=== PATIENT | male | born 1950 | race Caucasian/White ===

== ENCOUNTER 2018-07-06 15:41 | Inpatient (IN) ==
[2018-07-06] MEDS ORDERED: Ketorolac Inj 30 MG/ML (IVP) Vial IV.PUSH ONE (20:47)
[2018-07-06] MEDS ORDERED: Vancomycin Inj 1,000 MG in Sodium Chlor 0.9% Inj 250 ML IV.SIG ONE (20:47)
[2018-07-06] MEDS ORDERED: Piperacil/Tazo 3.375 GM Premix 3.375 GM/50 ML PIGGYBACK IV.SIG ONE (20:47)
[2018-07-06] MEDS ORDERED: Sod Chloride 0.9% Inj 1,000 ML IV.SIG ONE (20:47)
--- NOTE | 2018-07-06 20:57 | ED ---
HPI General Chief complaint: Medical Clearance Stated complaint: facial swelling-chin area Time Seen by Provider: 07/06/18 20:45 Source: patient Limitations: no limitations History of Present Illness HPI narrative: The patient is a 68 year old male who presents to the [facility] emergency department with a history of reportedly breaking a left mandibular molar on June 29, 2018, and then developing swelling to the left side of his jaw area. He reports that he was seen in an urgent care center on July 03 regarding the symptoms. He was started on amoxicillin 875 mg twice a day and Naprosyn 500 mg twice a day as needed for pain. He reports that there was no improvement in the swelling and yesterday the swelling became much worse. He reports that the pain also became much worse. He reports having nausea without vomiting. He denies having any known fevers or chills. The patient does report having history of diabetes. He reports that he last checked his blood sugar yesterday and it was 110. The patient reports that he does not have a local primary care physician as he recently moved to the area in February 2017. He reports that he has not seen a dentist for 3 years. The patient reports that he followed up at the urgent care center earlier today regarding the increased pain and swelling and was referred to the emergency department for evaluation and treatment. The patient reports having pain with swallowing. He denies having any difficulty breathing. On review of systems otherwise, the patient denies having any cough, congestion, neck stiffness, chest pain, shortness of breath, abdominal pain, diarrhea, urinary symptoms, or neurologic symptoms. Related Data Home Medications Medication Instructions Recorded Confirmed amoxicillin 875 mg PO BID 07/06/18 07/06/18 glimepiride 2 mg PO QAM 07/06/18 07/06/18 metformin 500 mg PO BID 07/06/18 07/06/18 naproxen 250 mg PO BID 07/06/18 07/06/18 pravastatin 40 mg PO DAILY 07/06/18 07/06/18 telmisartan 40 mg PO DAILY 07/06/18 07/06/18 tiotropium bromide [Spiriva 2 puff INHALATION DAILY 07/06/18 07/06/18 Respimat] Allergies Allergy/AdvReac Type Severity Reaction Status Date / Time No Known Allergies Allergy Verified 07/06/18 20:45 Review of Systems ROS: all other systems reviewed are negative PMFSH History History Provided By: Patient Family History Family History Other Diabetes mellitus Social History Social History Substance History: No History of Abuse Second Hand Smoke Exposure: No Smoking Status: Never smoker Smoking End Date: Quit 10 years ago. How Often Do You Have a Drink Containing Alcohol: 2 to 3 times a week Recent Travel in [facility] within the Last 8 Weeks: No Recent Out of Country Travel within the Last 8 Weeks: No Exam Const General: cooperative, no acute distress and well developed Nutritional Appearance: well nourished Orientation: alert, awake and oriented x3 HENMT Head: normocephalic and atraumatic Nose: no nasal discharge and no epistaxis Mouth: moist mucous membranes Teeth and gingiva: caries, gingiva abnormal diffusely erythematous and other ( No eloy abscess formation.) and poor dentition Throat: posterior oropharynx normal, uvula midline and other (No swelling noted to the underlying the patient's tongue in his mouth.) Eyes Sclera: normal sclerae Pupils: PERRL Neck Neck: not normal to visual inspection, no meningeal signs, trachea midline, no JVD and other (The patient is noted to have swelling underneath the left side of his jaw, under the chin spreading down into the anterior neck and partially involving the right side underneath the right mandible. This is indurated, firm , exquisitely tender to palpation. No fluctuance is palpated. No pointing. No open wounds.) Resp Effort & Inspection: no use of accessory muscles Auscultation: clear to auscultation bilaterally Cardio Rate: tachycardic (Sinus tachycardia in the low 100s. No pulse deficits to the extremities on simultaneous auscultation and palpation of his radial artery) Rhythm: regular rhythm Heart Sounds: no gallops, no murmurs and no rubs GI Inspection: non-distended Palpation: soft, no hepatosplenomegaly, no guarding, not rigid and nontender Auscultation: normal bowel sounds Back/Spine/Pelvis Back: no CVA tenderness Skin General: dry skin (warm) Neuro General: alert, awake, oriented x3 and other (Grossly nonfocal) Speech: speech normal Motor: no movement abnormalities noted Extrem General: normal to inspection (2+ pulses in all 4 extremities.), no calf tenderness, no clubbing, no cyanosis and no edema Psych Mood: congruent mood Affect: normal affect Judgment: judgment good Course Initial Documented Vital Signs Temperature 97.3 F L 07/06/18 15:53 Pulse Rate 111 H 07/06/18 15:53 Respiratory Rate 18 07/06/18 15:53 Blood Pressure 153/76 H 07/06/18 15:53 Pulse Oximetry 97 07/06/18 15:53 Last Documented Vital Signs Temperature 98.1 F 07/07/18 04:00 Pulse Rate 115 H 07/07/18 04:00 Respiratory Rate 20 07/07/18 04:00 Blood Pressure 142/75 H 07/07/18 04:00 Pulse Oximetry 95 07/07/18 04:00 Medical Decision Making MDM Narrative Medical decision making narrative: During the course of the patient's emergency department visit, the patient's history, examination, and differential diagnosis were reviewed with the patient. The patient was placed on a pvc monitor with oximetry and frequent blood pressure monitoring. The patient had IV access obtained and blood work sent for analysis. A diagnostic evaluation was started regarding the patient's swelling involving the area underneath the chin and mandible worse on the left compared to the right. The patient was initially provided normal saline 1 L IV fluid bolus, Zosyn and vancomycin. Blood cultures x2 were collected prior to antibiotic being started. A lactic acid was sent for analysis. The patient's diagnostic studies are remarkable for a white count of 21.8, hemoglobin 13.4, platelets 473 with 83.9 neutrophils, PT 10.3, PTT 34.4, chemistries remarkable for BUN of 33, creatinine 1.36, cardiac enzymes within normal limits, lipase within normal limits, lactic acid 1.3. Chest x-ray revealed convex medial right apical right paratracheal density worrisome for upper chest or mediastinal mass, recommended CT scan to further evaluate by the reading radiologist. CT scan of the soft tissues of the neck reveals air and mild induration change in the left floor of the mouth and submandibular region which is presumably related to gas producing dental infection of some type. CT scan of the chest reveals medial right apical lung mass that is felt likely to be benign potentially a bronchogenic cyst or GI duplication cyst. There are additional nodules elsewhere in both lungs which warrant follow-up ideally the radiologist recommended follow-up with outpatient PET/CT as none of these lesions appear appropriate for biopsy at present. Probable benign findings in the upper abdomen, mild ascending thoracic aortic aneurysm. The patient's case including history, pertinent physical examination findings, and laboratory studies were discussed with Dr. Hinojosa. It was agreed that the patient would be admitted to the hospitalist service. The patient's results were discussed with the patient, including the plan of care. I explained that further testing and/ or monitoring is indicated based on the patient's history, examination, and/ or laboratory findings. Therefore, I recommended admission for additional evaluation. The patient expressed understanding and was agreeable with this plan. The patient was admitted to the hospital in guarded condition and sent to a bed under the care of the [facility] service. Medical Screen Exam Complete: Yes Emergency Medical Condition: Yes Differential Diagnosis Differential Diagnosis: Ludewig's angina, versus sialadenitis, versus lymphadenitis, versus cellulitis, versus deep abscess Medical Records Medical records reviewed: Yes I reviewed the patient's medical records. Lab Data Lab results reviewed: Yes I reviewed the patient's lab results. Result diagrams: 07/07/18 05:05 07/07/18 05:05 Lab Results 07/06/18 07/06/18 07/06/18 Range/Units 20:50 20:50 20:50 WBC 21.8 H (4.0-11.0) th/mm3 RBC 3.92 L (4.50-5.90) mil/mm3 Hgb 13.4 (13.0-17.0) gm/dL Hct 40.2 (39.0-51.0) % MCV 102.3 H (80.0-100.0) fL MCH 34.1 H (27.0-34.0) pg MCHC 33.3 (32.0-36.0) % RDW 14.0 (11.6-17.2) % Plt Count 473 H (150-450) th/mm3 MPV 7.8 (7.0-11.0) fL Neut % (Auto) 83.9 H (16.0-70.0) % Lymph % (Auto) 7.9 L (9.0-44.0) % Cascade % (Auto) 7.3 (0.0-8.0) % Eos % (Auto) 0.4 (0.0-4.0) % Baso % (Auto) 0.5 (0.0-2.0) % Neut # (Auto) 18.3 H (1.8-7.7) th/mm3 Lymph # (Auto) 1.7 (1.0-4.8) th/mm3 Cascade # (Auto) 1.6 H (0.0-0.9) th/mm3 Eos # (Auto) 0.1 (0.0-0.4) th/mm3 Baso # (Auto) 0.1 (0.0-0.2) th/mm3 WBC Differential . Differential Comment Auto diff final PT 10.3 (9.8-11.6) sec INR 1.0 Ratio APTT 34.4 H (23.4-31.7) sec Sodium (136-145) meq/L Potassium (3.5-5.1) meq/L Chloride (98-107) meq/L Carbon Dioxide (21.0-32.0) meq/L Anion Gap (5-15) meq/L BUN (7-18) mg/dL Creatinine (0.60-1.30) mg/dL Estimated GFR (>89) mL/min POC Glucose (68-110) mg/dl Random Glucose (74-106) mg/dL Lactic Acid (0.4-2.0) mmol/L Calcium (8.5-10.1) mg/dL Magnesium (1.5-2.5) mg/dL Total Bilirubin (0.2-1.0) mg/dL AST (15-37) U/L ALT (12-78) U/L Alkaline Phosphatase (45-117) U/L Total Creatine Kinase 234 (39-308) U/L CK-MB (CK-2) 1.8 (0.5-3.6) ng/mL Troponin I Less than 0.02 L (0.02-0.05) ng/mL Total Protein (6.4-8.2) g/dL Albumin (3.4-5.0) g/dL Lipase 254 (73-393) U/L 07/06/18 07/06/18 07/07/18 Range/Units 20:50 20:50 01:47 WBC (4.0-11.0) th/mm3 RBC (4.50-5.90) mil/mm3 Hgb (13.0-17.0) gm/dL Hct (39.0-51.0) % MCV (80.0-100.0) fL MCH (27.0-34.0) pg MCHC (32.0-36.0) % RDW (11.6-17.2) % Plt Count (150-450) th/mm3 MPV (7.0-11.0) fL Neut % (Auto) (16.0-70.0) % Lymph % (Auto) (9.0-44.0) % Cascade % (Auto) (0.0-8.0) % Eos % (Auto) (0.0-4.0) % Baso % (Auto) (0.0-2.0) % Neut # (Auto) (1.8-7.7) th/mm3 Lymph # (Auto) (1.0-4.8) th/mm3 Cascade # (Auto) (0.0-0.9) th/mm3 Eos # (Auto) (0.0-0.4) th/mm3 Baso # (Auto) (0.0-0.2) th/mm3 WBC Differential Differential Comment PT (9.8-11.6) sec INR Ratio APTT (23.4-31.7) sec Sodium 136 (136-145) meq/L Potassium 3.9 (3.5-5.1) meq/L Chloride 104 (98-107) meq/L Carbon Dioxide 23.1 (21.0-32.0) meq/L Anion Gap 9 (5-15) meq/L BUN 33 H (7-18) mg/dL Creatinine 1.36 H (0.60-1.30) mg/dL Estimated GFR 52 L (>89) mL/min POC Glucose 94 (68-110) mg/dl Random Glucose 97 (74-106) mg/dL Lactic Acid 1.3 (0.4-2.0) mmol/L Calcium 9.4 (8.5-10.1) mg/dL Magnesium 2.4 (1.5-2.5) mg/dL Total Bilirubin 0.7 (0.2-1.0) mg/dL AST 21 (15-37) U/L ALT 21 (12-78) U/L Alkaline Phosphatase 86 (45-117) U/L Total Creatine Kinase (39-308) U/L CK-MB (CK-2) (0.5-3.6) ng/mL Troponin I (0.02-0.05) ng/mL Total Protein 8.1 (6.4-8.2) g/dL Albumin 3.6 (3.4-5.0) g/dL Lipase (73-393) U/L 07/07/18 07/07/18 Range/Units 05:05 05:05 WBC 16.9 H (4.0-11.0) th/mm3 RBC 3.36 L (4.50-5.90) mil/mm3 Hgb 11.3 L D (13.0-17.0) gm/dL Hct 34.5 L (39.0-51.0) % MCV 102.7 H (80.0-100.0) fL MCH 33.7 (27.0-34.0) pg MCHC 32.8 (32.0-36.0) % RDW 13.8 (11.6-17.2) % Plt Count 402 (150-450) th/mm3 MPV 7.9 (7.0-11.0) fL Neut % (Auto) 88.9 H (16.0-70.0) % Lymph % (Auto) 4.4 L (9.0-44.0) % Cascade % (Auto) 5.4 (0.0-8.0) % Eos % (Auto) 0.9 (0.0-4.0) % Baso % (Auto) 0.4 (0.0-2.0) % Neut # (Auto) 15.0 H (1.8-7.7) th/mm3 Lymph # (Auto) 0.7 L (1.0-4.8) th/mm3 Cascade # (Auto) 0.9 (0.0-0.9) th/mm3 Eos # (Auto) 0.1 (0.0-0.4) th/mm3 Baso # (Auto) 0.1 (0.0-0.2) th/mm3 WBC Differential . Differential Comment Auto diff final PT (9.8-11.6) sec INR Ratio APTT (23.4-31.7) sec Sodium 138 (136-145) meq/L Potassium 3.7 (3.5-5.1) meq/L Chloride 108 H (98-107) meq/L Carbon Dioxide 21.5 (21.0-32.0) meq/L Anion Gap 9 (5-15) meq/L BUN 32 H (7-18) mg/dL Creatinine 1.20 (0.60-1.30) mg/dL Estimated GFR 60 L (>89) mL/min POC Glucose (68-110) mg/dl Random Glucose 80 (74-106) mg/dL Lactic Acid (0.4-2.0) mmol/L Calcium 8.3 L D (8.5-10.1) mg/dL Magnesium (1.5-2.5) mg/dL Total Bilirubin (0.2-1.0) mg/dL AST (15-37) U/L ALT (12-78) U/L Alkaline Phosphatase (45-117) U/L Total Creatine Kinase (39-308) U/L CK-MB (CK-2) (0.5-3.6) ng/mL Troponin I (0.02-0.05) ng/mL Total Protein (6.4-8.2) g/dL Albumin (3.4-5.0) g/dL Lipase (73-393) U/L Imaging Data Radiologist's impression: Chest CT 07/06/18 00:00 CONCLUSION: 1. Medial right apical lung mass is felt likely benign, potentially a bronchogenic cyst or GI duplication cyst. 2. There are additional nodules elsewhere in both lungs which warrant follow- up. Ideally I would recommend follow-up with outpatient PET/CT as none of these lesions appear appropriate for biopsy at present. 3. Probably benign findings in the upper abdomen. 4. Mild ascending thoracic aortic aneurysm. Soft Tissue Neck CT 07/06/18 20:45 CONCLUSION: Air and mild indurative change in the left floor of mouth and submandibular region which is presumably related to gas producing dental infection of some type. Chest X-Ray 07/06/18 20:46 CONCLUSION: Abnormal chest. Recommend including CT chest with the patient's planned additional imaging workup Discharge Plan Discharge Disposition Patient Disposition: ED Admit(ED Internal Use Only) Discharge Order Discharge Orders: ED Use Only Admit Order (Routine); Ordered 07/06/18 Ordered By: Kayleen Webber Discharge Details Diagnosis: Failure of outpatient treatment, Cellulitis, Dental infection Physicians Team ED Provider: Kayleen Webber Primary Care Provider: Primary Care Physici,No Attending Provider: Yonny Coughlin Other Providers: Ruel Melton Discharge Interventions Interventions: ED Discharge Assessment Last Done: 07/07/18 01:45 Status ED Status: Left Department Discharge Information Discharge Date/Time: 07/07/18 01:46
--- NOTE | 2018-07-06 21:06 | XR ---
EXAM DATE: 07/06/2018 9:01 PM EST AGE/SEX: 68 years / Male INDICATIONS: Short of breath. CLINICAL DATA: This is the patient's initial encounter. Patient reports that signs and symptoms have been present for 1 day and indicates a pain score of 0/10. MEDICAL/SURGICAL HISTORY: None. None. COMPARISON: [facility] [place], CT SOFT TISSUE NECK W CONTRAST, 07/06/2018. . FINDINGS: There is a convex medial right apical/right paratracheal density worrisome for upper chest or mediast inal mass. There is slight subjective prominence of the right hilum. Lungs are grossly clear otherwis e with no significant effusion suspected. Heart size and pulmonary vascularity are normal. CONCLUSION: Abnormal chest. Recommend including CT chest with the patient's planned additional imaging workup Electronically signed by: Tristan Weinstein MD Board Certified Radiologist 07/06/2018 9:05 PM EST
[2018-07-06 21:14] LABS: Baso # (Auto) 0.1 th/mm3 (0.0-0.2); Baso % (Auto) 0.5 % (0.0-2.0); Eos # (Auto) 0.1 th/mm3 (0.0-0.4); Eos % (Auto) 0.4 % (0.0-4.0); Hematocrit 40.2 % (39.0-51.0); Hemoglobin 13.4 gm/dL (13.0-17.0); Lymph # (Auto) 1.7 th/mm3 (1.0-4.8); Lymph % (Auto) 7.9 % (9.0-44.0); Mean Corpuscular HGB Conc 33.3 % (32.0-36.0); Mean Corpuscular Hemoglobin 34.1 pg (27.0-34.0); Mean Corpuscular Volume 102.3 fL (80.0-100.0); Mean Platelet Volume 7.8 fL (7.0-11.0); Mono # (Auto) 1.6 th/mm3 (0.0-0.9); Mono % (Auto) 7.3 % (0.0-8.0); Neut # (Auto) 18.3 th/mm3 (1.8-7.7); Neut % (Auto) 83.9 % (16.0-70.0); Platelet Count 473 th/mm3 (150-450); Red Blood Count 3.92 mil/mm3 (4.50-5.90); White Blood Count 21.8 th/mm3 (4.0-11.0)
[2018-07-06 21:26] LABS: Activated Partial Thrombo Time 34.4 sec (23.4-31.7); Prothrombin Time 10.3 sec (9.8-11.6)
[2018-07-06 21:32] LABS: Albumin 3.6 g/dL (3.4-5.0); Anion Gap 9 meq/L (5-15); Aspartate Aminotransferase 21 U/L (15-37); Blood Urea Nitrogen 33 mg/dL (7-18); Calcium 9.4 mg/dL (8.5-10.1); Carbon Dioxide 23.1 meq/L (21.0-32.0); Chloride 104 meq/L (98-107); Glomerular Filtration Rate 52 mL/min (>89); Glucose,Random 97 mg/dL (74-106); Magnesium 2.4 mg/dL (1.5-2.5); Potassium 3.9 meq/L (3.5-5.1); Sodium 136 meq/L (136-145)
[2018-07-06 21:33] LABS: Alanine Aminotransferase 21 U/L (12-78)
[2018-07-06 21:34] LABS: Lipase 254 U/L (73-393)
[2018-07-06 21:35] LABS: Alkaline Phosphatase 86 U/L (45-117); Total Protein 8.1 g/dL (6.4-8.2)
[2018-07-06 21:37] LABS: Creatine Kinase 234 U/L (39-308)
[2018-07-06 21:49] LABS: Creatine Kinase MB 1.8 ng/mL (0.5-3.6)
--- NOTE | 2018-07-06 22:29 | CT ---
EXAM DATE: 07/06/2018 10:10 PM EST AGE/SEX: 68 years / Male INDICATIONS: Shortness of breath, abnormal chest x-ray. CLINICAL DATA: This is the patient's initial encounter. Patient reports that signs and symptoms have been present for 1 day and indicates a pain score of 0/10. MEDICAL/SURGICAL HISTORY: Chronic obstructive pulmonary disease. Diabetes. Hypertension. None. RADIATION DOSE: 6.59 CTDI (mGy) COMPARISON: No prior exams available for comparison. TECHNIQUE: Multiple contiguous axial images were obtained through the chest during bolus infusion of 50 ml Omnipaque 350 (iohexol) nonionic water-soluble contrast as a single exam dose. Images were obtained in suspended respiration using multiple row detector helical technique. Using automated exp osure control and adjustment of the mA and/or kV according to patient size, radiation dose was kept a s low as reasonably achievable to obtain optimal diagnostic quality images. DICOM format image data is available electronically for review and comparison. FINDINGS: There is a very well-circumscribed minimally less than 4 cm mass in the medial right lung apex which shows Hounsfield density of just greater than water. There is a 14 mm nodular focus in the lingula wi th slight adjacent reticular infiltrative density. A 9 mm nodular density is present in the posterior medial right lower lobe. Multiple additional tiny parenchymal nodules are present elsewhere in the l ower lung zones bilaterally. There is mild baseline emphysema. No evidence of lobar pneumonia. There is a small fat-containing posterior diaphragmatic hernia on the right. There is mild aneurysmal dilatation of the ascending thoracic aorta to a diameter of 4.4 cm. Atherosc lerotic calcifications are present, including within the coronaries. Small hiatal hernia is noted. No evidence of hilar or mediastinal adenopathy. There is no evidence of effusion. No axillary adenopathy or chest wall destruction is noted. There is a circumscribed low density 2.7 cm right adrenal gland mass which is felt likely benign. Tin y cysts in the visualized liver. Mild hepatic steatosis. Granulomatous calcifications in the spleen. CONCLUSION: 1. Medial right apical lung mass is felt likely benign, potentially a bronchogenic cyst or GI duplic ation cyst. 2. There are additional nodules elsewhere in both lungs which warrant follow-up. Ideally I would rec ommend follow-up with outpatient PET/CT as none of these lesions appear appropriate for biopsy at pre sent. 3. Probably benign findings in the upper abdomen. 4. Mild ascending thoracic aortic aneurysm. Electronically signed by: Tristan Weinstein MD Board Certified Radiologist 07/06/2018 10:27 PM EST
--- NOTE | 2018-07-06 22:44 | CT ---
EXAM DATE: 07/06/2018 10:09 PM EST AGE/SEX: 68 years / Male INDICATIONS: Left side neck swelling. CLINICAL DATA: This is the patient's initial encounter. Patient reports that signs and symptoms have been present for 4 - 6 days and indicates a pain score of 10/10. MEDICAL/SURGICAL HISTORY: Chronic obstructive pulmonary disease. Diabetes. Hypertension. None. RADIATION DOSE: 18.52 CTDI (mGy) COMPARISON: No prior exams available for comparison. TECHNIQUE: Helical acquisition was performed using a multirow detector CT scanner during the adminis tration of 50 ml Omnipaque 350 (iohexol) nonionic water-soluble contrast as a single exam dose. Usi ng automated exposure control and adjustment of the mA and/or kV according to patient size, radiation dose was kept as low as reasonably achievable to obtain optimal diagnostic quality images. DICOM fo rmat image data is available electronically for review and comparison. FINDINGS: There is air and indurative changes extending from the left floor of mouth adjacent to the medial man dible and premolar tooth region inferiorly into the submandibular space. This is presumably related t o dental infection of some type. There is no significant fluid present, mainly air. There is mild mucosal sinus disease in the base of the right maxillary sinus. The visualized orbits and brain are unremarkable. There is no evidence of cervical adenopathy. The visualized parotid and submandibular salivary glands are unremarkable. The supraclavicular regions are unremarkable. The thyroid is normal for CT appearance. CONCLUSION: Air and mild indurative change in the left floor of mouth and submandibular region which is presumabl y related to gas producing dental infection of some type. Electronically signed by: Tristan Weinstein MD Board Certified Radiologist 07/06/2018 10:42 PM EST
[2018-07-06] MEDS ORDERED: Vancomycin Consult Pharmacy OTHER PRN (23:26)
[2018-07-06] MEDS ORDERED: Dextrose 50% in Water 50 ML Vial IV.PUSH PRN (23:28)
[2018-07-06] MEDS ORDERED: Bisacodyl 10 MG Supp RECTAL PRN (23:28)
[2018-07-06] MEDS ORDERED: Morphine Sulfate Inj 2 MG/ML Vial IV.PUSH PRN (23:28)
--- NOTE | 2018-07-06 23:40 | P.HP ---
History of Present Illness Service: [facility] Primary Care Physician: No Primary Care Physician History of Present Illness: 68-year-old male with a past medical history significant for diabetes mellitus, hypertension, hyperlipidemia and COPD presents to the emergency department for the evaluation of pain and swelling in his left jaw and left neck. The patient reports that on 06/28 he cracked his bottom left molar. He did not seek treatment as the broken tooth was not bothering him at that time. He reports that by 06/30 his tooth had started hurting. He then noticed left-sided jaw swelling with accompanying pain. One week ago, the patient went to urgent care and was prescribed amoxicillin and naproxen. He took his medications as prescribed however his symptoms continued to worsen. He returned to urgent care today who sent him to the [facility] for further evaluation of failed outpatient therapy. The patient denies any fever/chills. He denies any chest pain or shortness of breath. No abdominal pain. No nausea/vomiting/diarrhea. No focal neurologic deficits. Inpatient Certification: I certify that the inpatient services were ordered in accordance with Medicare regulations governing the order. This includes certification that hospital inpatient services are reasonable and necessary and in the case of services not specified as inpatient-only under 42 CFR 419.22(n), that they are appropriately provided as inpatient services in accordance to with the 2-midnight benchmark under 43 CFR 412.3(e) Estimated Total Length of Stay (Days): 3 Plans for Post Hospital Care: Not yet determined Review of Systems All other systems reviewed negative except as stated [facility] - History History Provided By: Patient - Medical History Medical History: Medical History (Last Reviewed 07/06/18 @ 23:34 by Carmelina Hinojosa MD) COPD (chronic obstructive pulmonary disease) Diabetes mellitus Diabetic neuropathy Hyperlipidemia Hypertension - Surgical History Surgical History: Surgical History (Last Reviewed 07/06/18 @ 23:34 by Carmelina Hinojosa MD) History of tonsillectomy - Family History Family History: Family History (Last Updated 07/06/18 @ 23:34 by Carmelina Hinojosa MD) Other Diabetes mellitus - Social History I have reviewed the patient's Social History: Yes - Tobacco History Smoking Status: Former smoker Smoking End Date: Quit 10 years ago. - Alcohol History How Often Do You Have a Drink Containing Alcohol: 4 or more times a week - Substance Use History Substance History: No History of Abuse - Travel History Recent Travel in the [place] Within the Last 8 Weeks: No Recent Travel Out of the Country Within the Last 8 Weeks: No Medications and Allergies Allergies Allergy/AdvReac Type Severity Reaction Status Date / Time No Known Allergies Allergy Verified 07/06/18 20:45 Home Medications Medication Instructions Recorded Confirmed Type amoxicillin 875 mg PO BID 07/06/18 07/06/18 History glimepiride 2 mg PO QAM 07/06/18 07/06/18 History metformin 500 mg PO BID 07/06/18 07/06/18 History naproxen 250 mg PO BID 07/06/18 07/06/18 History pravastatin 40 mg PO DAILY 07/06/18 07/06/18 History telmisartan 40 mg PO DAILY 07/06/18 07/06/18 History tiotropium bromide [Spiriva 2 puff INHALATION DAILY 07/06/18 07/06/18 History Respimat] Exam Vital signs: Vital Signs 07/06/18 15:53 Temperature 97.3 F L Pulse Rate 111 H Respiratory Rate 18 Blood Pressure 153/76 H Pulse Oximetry 97 Intake & Output 07/06/18 07/06/18 07/07/18 06:59 18:59 06:59 Intake Total 50 / 50 Balance 50 / 50 Weight 72.575 kg Intake: IV 50 / 50 Zosyn 3.375 GM Premix 3.375 gm 50 / 50 In 50 ml @ 100 mls/hr IV.SIG ONCE ONE Rx#:[id number] Narrative: Gen.: No acute distress Head: Normocephalic. Atraumatic. EENT: Pupils equal round and reactive to light. Nose without drainage. Airway intact. Throat without injection. Multiple caries with diffusely erythematous tissue. Left side of the jaw and left neck swollen and erythematous with induration but no fluctuance. Cardiovascular: Regular rate and rhythm. No murmurs, rubs or gallops. Respiratory: Lungs clear to auscultation bilaterally. No wheezes or rhonchi. Abdomen: Soft, nontender, nondistended. No peritoneal signs. Musculoskeletal: No gross deformities. No edema. Neuro: Sensory and motor grossly intact. Cranial nerves II through XII grossly intact. Results - Labs CBC & Chem 7: 07/06/18 20:50 07/06/18 20:50 Labs: Laboratory Results - last 24 hr 07/06/18 07/06/18 07/06/18 20:50 20:50 20:50 WBC 21.8 H RBC 3.92 L Hgb 13.4 Hct 40.2 MCV 102.3 H MCH 34.1 H MCHC 33.3 RDW 14.0 Plt Count 473 H MPV 7.8 Neut % (Auto) 83.9 H Lymph % (Auto) 7.9 L Liberty % (Auto) 7.3 Eos % (Auto) 0.4 Baso % (Auto) 0.5 Neut # (Auto) 18.3 H Lymph # (Auto) 1.7 Liberty # (Auto) 1.6 H Eos # (Auto) 0.1 Baso # (Auto) 0.1 WBC Differential . Differential Comment Auto diff final PT 10.3 INR 1.0 APTT 34.4 H Sodium Potassium Chloride Carbon Dioxide Anion Gap BUN Creatinine Estimated GFR Random Glucose Lactic Acid Calcium Magnesium Total Bilirubin AST ALT Alkaline Phosphatase Total Creatine Kinase 234 CK-MB (CK-2) 1.8 Troponin I Less than 0.02 L Total Protein Albumin Lipase 254 07/06/18 07/06/18 20:50 20:50 WBC RBC Hgb Hct MCV MCH MCHC RDW Plt Count MPV Neut % (Auto) Lymph % (Auto) Liberty % (Auto) Eos % (Auto) Baso % (Auto) Neut # (Auto) Lymph # (Auto) Liberty # (Auto) Eos # (Auto) Baso # (Auto) WBC Differential Differential Comment PT INR APTT Sodium 136 Potassium 3.9 Chloride 104 Carbon Dioxide 23.1 Anion Gap 9 BUN 33 H Creatinine 1.36 H Estimated GFR 52 L Random Glucose 97 Lactic Acid 1.3 Calcium 9.4 Magnesium 2.4 Total Bilirubin 0.7 AST 21 ALT 21 Alkaline Phosphatase 86 Total Creatine Kinase CK-MB (CK-2) Troponin I Total Protein 8.1 Albumin 3.6 Lipase - Imaging Impressions Chest CT 07/06/18 00:00 CONCLUSION: 1. Medial right apical lung mass is felt likely benign, potentially a bronchogenic cyst or GI duplication cyst. 2. There are additional nodules elsewhere in both lungs which warrant follow- up. Ideally I would recommend follow-up with outpatient PET/CT as none of these lesions appear appropriate for biopsy at present. 3. Probably benign findings in the upper abdomen. 4. Mild ascending thoracic aortic aneurysm. Soft Tissue Neck CT 07/06/18 20:45 CONCLUSION: Air and mild indurative change in the left floor of mouth and submandibular region which is presumably related to gas producing dental infection of some type. Chest X-Ray 07/06/18 20:46 CONCLUSION: Abnormal chest. Recommend including CT chest with the patient's planned additional imaging workup Caprini VTE Risk Assessment Caprini VTE Risk Assessment: Moderate/High Risk (score >= 2) Caprini Risk Assessment Model: Point Value = 1 Point Value = 2 Point Value = 3 Point Value = 5 Age 41-60 Minor surgery BMI > 25 kg/m2 Swollen legs Varicose veins or History of unexplained or recurrent spontaneous Oral contraceptives or hormone replacement Sepsis (< 1 month) Serious lung disease, including pneumonia (< 1 month) Abnormal pulmonary function Acute myocardial infarction Congestive heart failure (< 1 month) History of inflammatory bowel disease Medical patient at bed rest Age 61-74 Arthroscopic surgery Major open surgery (> 45 min) Laparoscopic surgery (> 45 min) Malignancy Confined to bed (> 72 hours) Immobilizing plaster cast Central venous access Age >= 75 History of VTE Family history of VTE Factor V Leiden Prothrombin [id number] Lupus anticoagulant Anticardiolipin antibodies Elevated serum homocysteine Heparin-induced thrombocytopenia Other congenital or acquired thrombophilia Stroke (< 1 month) Elective arthroplasty Hip, pelvis, or leg fracture Acute spinal cord injury (< 1 month) Prophylaxis Regimen: Total Risk Factor Score Risk Level Prophylaxis Regimen 0-1 Low Early ambulation 2 Moderate Order ONE of the following: *Sequential Compression Device (SCD) *Heparin 5000 units SQ BID 3-4 Higher Order ONE of the following medications: *Heparin 5000 units SQ TID *Enoxaparin/Lovenox 40 mg SQ daily (WT < 150 kg, CrCl > 30 mL/min) *Enoxaparin/Lovenox 30 mg SQ daily (WT < 150 kg, CrCl > 10-29 mL/min) *Enoxaparin/Lovenox 30 mg SQ BID (WT < 150 kg, CrCl > 30 mL/min) AND/OR *Sequential Compression Device (SCD) 5 or more Highest Order ONE of the following medications: *Heparin 5000 units SQ TID (Preferred with Epidurals) *Enoxaparin/Lovenox 40 mg SQ daily (WT < 150 kg, CrCl > 30 mL/min) *Enoxaparin/Lovenox 30 mg SQ daily (WT < 150 kg, CrCl > 10-29 mL/min) *Enoxaparin/Lovenox 30 mg SQ BID (WT < 150 kg, CrCl > 30 mL/min) AND *Sequential Compression Device (SCD) Assessment and Plan - Plan Assessment/plan: 1. Dental abscess/cellulitis Failed outpatient amoxicillin CT of the neck shows air and mild indurative change in the left floor of the mouth and submandibular region ENT consulted, appreciate assistance Vancomycin/Zosyn 2. Diabetes mellitus Holding home oral antihyperglycemics Sliding-scale insulin Monitor blood glucose 3. Hypertension/hyperlipidemia/COPD Continue home medications 4. Acute kidney injury Creatinine 1.36, baseline unknown Likely chronic component IV fluid hydration Monitor renal function FEN N.p.o. Electrolytes: Monitor and replete as needed NS at 100 cc/hour Holding pharmacologic anticoagulation until cleared by ENT
[2018-07-07] MEDS: Sod Chloride 0.9% Inj 1,000 ML IV.CONT SCH ×3 (01:11→21:17)
[2018-07-07] MEDS: Insulin NovoLOG Aspart Correctional Sugar Inj SQ SCH ×5 (02:05→21:24)
[2018-07-07] MEDS: Acetaminophen 325 MG Tablet PO PRN ×2 (03:45→20:22)
[2018-07-07] MEDS: Piperacil/Tazo 3.375 GM Premix 3.375 GM/50 ML PIGGYBACK IV.SIG SCH ×4 (03:45→21:17)
[2018-07-07 06:15] LABS: Baso # (Auto) 0.1 th/mm3 (0.0-0.2); Baso % (Auto) 0.4 % (0.0-2.0); Eos # (Auto) 0.1 th/mm3 (0.0-0.4); Eos % (Auto) 0.9 % (0.0-4.0); Hematocrit 34.5 % (39.0-51.0); Hemoglobin 11.3 gm/dL (13.0-17.0); Lymph # (Auto) 0.7 th/mm3 (1.0-4.8); Lymph % (Auto) 4.4 % (9.0-44.0); Mean Corpuscular HGB Conc 32.8 % (32.0-36.0); Mean Corpuscular Hemoglobin 33.7 pg (27.0-34.0); Mean Corpuscular Volume 102.7 fL (80.0-100.0); Mean Platelet Volume 7.9 fL (7.0-11.0); Mono # (Auto) 0.9 th/mm3 (0.0-0.9); Mono % (Auto) 5.4 % (0.0-8.0); Neut % (Auto) 88.9 % (16.0-70.0); Platelet Count 402 th/mm3 (150-450); Red Blood Count 3.36 mil/mm3 (4.50-5.90); Red Cell Distribution Width 13.8 % (11.6-17.2); White Blood Count 16.9 th/mm3 (4.0-11.0)
[2018-07-07 06:27] LABS: Calcium 8.3 mg/dL (8.5-10.1); Carbon Dioxide 21.5 meq/L (21.0-32.0); Potassium 3.7 meq/L (3.5-5.1)
[2018-07-07] MEDS: Senna/Docusate Sodium 8.6/50 MG Tablet PO SCH ×2 (08:17→20:22)
[2018-07-07] MEDS ORDERED: TIOTROPIUM BROMIDE INH SCH (09:00)
[2018-07-07] MEDS ORDERED: Vancomycin Inj 1,500 MG in Sodium Chlor 0.9% Inj 500 ML IV.SIG SCH (11:00)
--- NOTE | 2018-07-07 12:58 | P.PNIM ---
Subjective Interval history: Patient seen and evaluated this morning at bedside with present. Patient reports that his breathing is stable without any shortness of breath. Patient reports that he is able to swallow much better than he did 24 hours previously. Patient denied noticing any pus coming from his mouth or any sores. Patient without any subjective fever chills. Patient otherwise offers no new complaints and we are currently awaiting ENT evaluation Physical Exam Vital signs: Last Vital Signs Temp 98.3 F 07/07/18 12:00 Pulse 95 H 07/07/18 12:00 Resp 14 07/07/18 12:00 BP 120/58 L 07/07/18 12:00 Pulse Ox 96 07/07/18 12:00 Intake & Output 07/05/18 07/06/18 07/07/18 07/08/18 06:59 06:59 06:59 06:59 Intake Total 1350 / 1350 1565 / 1565 Balance 1350 / 1350 1565 / 1565 Weight 78.2 kg Narrative: Gen.: No acute distress Head: Normocephalic. Atraumatic. EENT: Pupils equal round and reactive to light. Nose without drainage. Airway intact. Throat without injection. Multiple caries with diffusely erythematous tissue. Left side of the jaw and left neck swollen and erythematous with induration but minimal fluctuance. Cardiovascular: Regular rate and rhythm. No murmurs, rubs or gallops. Respiratory: Lungs clear to auscultation bilaterally. No wheezes or rhonchi. Abdomen: Soft, nontender, nondistended. No peritoneal signs. Musculoskeletal: No gross deformities. No edema. Neuro: Sensory and motor grossly intact. Cranial nerves II through XII grossly intact. Results Labs CBC & Chem 7: 07/07/18 05:05 07/07/18 05:05 Labs: Microbiology 07/06/18 20:55 Blood - Peripheral Aerobic Blood Culture - Preliminary No growth in 1 day 07/06/18 20:55 Blood - Peripheral Anaerobic Blood Culture - Preliminary No growth in 1 day 07/06/18 20:50 Blood - Peripheral Aerobic Blood Culture - Preliminary No growth in 1 day 07/06/18 20:50 Blood - Peripheral Anaerobic Blood Culture - Preliminary No growth in 1 day Imaging Imaging: Impressions Chest CT 07/06/18 00:00 CONCLUSION: 1. Medial right apical lung mass is felt likely benign, potentially a bronchogenic cyst or GI duplication cyst. 2. There are additional nodules elsewhere in both lungs which warrant follow- up. Ideally I would recommend follow-up with outpatient PET/CT as none of these lesions appear appropriate for biopsy at present. 3. Probably benign findings in the upper abdomen. 4. Mild ascending thoracic aortic aneurysm. Soft Tissue Neck CT 07/06/18 20:45 CONCLUSION: Air and mild indurative change in the left floor of mouth and submandibular region which is presumably related to gas producing dental infection of some type. Chest X-Ray 07/06/18 20:46 CONCLUSION: Abnormal chest. Recommend including CT chest with the patient's planned additional imaging workup Assessment and Plan (1) Lung nodule: Code(s): R91.1 - Solitary pulmonary nodule Status: Acute (2) Lung nodule < 6cm on CT: Code(s): R91.1 - Solitary pulmonary nodule Status: Acute Plan Patient is a 68-year-old male with past medical history of hyperlipidemia, hypertension, diabetes mellitus presenting with jaw erythema swelling admitted and found on CAT scan to have significant soft tissue swelling. Infectious disease: Soft tissue infection ENT consulted and recommendations pending Blood culture: No growth to date Continue empiric antibiotic Zosyn 3.375 every 6 hours, vancomycin 1.5 g every 24 hours Monitor vancomycin trough Pain control: Naproxen [address] imaging reviewed. No evidence of Abscess formation in the chest - considerations: In general, antimicrobial therapy should be continued for two to three weeks until clear evidence of clinical improvement is present, and fever and leucocytosis have subsided. Sequential C-reactive protein measurement is a useful tool for monitoring the progress of such patients - ESR/CRP for am Pulmonary: Lung nodule Outpatient follow-up with PET/CT scan. Cardiology: Hyperlipidemia, hypertension Continue losartan 50 mg Pravastatin 40 mg p.o. Endocrinology: Diabetes mellitus Insulin correctional scale Progress Note: Quality VTE Deep Vein Thrombosis/Pulmonary Embolism Present on Admission: No
[2018-07-07] MEDS ORDERED: Vancomycin Consult Pharmacy OTHER PRN (13:00)
[2018-07-08] MEDS: Insulin NovoLOG Aspart Correctional Sugar Inj SQ SCH ×5 (02:57→20:56)
[2018-07-08] MEDS: Piperacil/Tazo 3.375 GM Premix 3.375 GM/50 ML PIGGYBACK IV.SIG SCH ×2 (03:00→09:10)
[2018-07-08] MEDS: Sod Chloride 0.9% Inj 1,000 ML IV.CONT SCH ×2 (06:14→17:22)
[2018-07-08 07:08] LABS: Hematocrit 31.8 % (39.0-51.0); Hemoglobin 10.6 gm/dL (13.0-17.0); Mean Corpuscular HGB Conc 33.3 % (32.0-36.0); Mean Corpuscular Hemoglobin 34.3 pg (27.0-34.0); Mean Corpuscular Volume 103.1 fL (80.0-100.0); Mean Platelet Volume 7.9 fL (7.0-11.0); Platelet Count 435 th/mm3 (150-450); Red Blood Count 3.08 mil/mm3 (4.50-5.90); Red Cell Distribution Width 13.9 % (11.6-17.2); White Blood Count 22.3 th/mm3 (4.0-11.0)
[2018-07-08 07:37] LABS: Calcium 8.4 mg/dL (8.5-10.1); Carbon Dioxide 19.1 meq/L (21.0-32.0); Magnesium 2.1 mg/dL (1.5-2.5); Potassium 3.4 meq/L (3.5-5.1)
[2018-07-08] MEDS: Senna/Docusate Sodium 8.6/50 MG Tablet PO SCH ×2 (09:09→20:57)
--- NOTE | 2018-07-08 10:18 | P.CONID ---
History of Present Illness Service: Infectious disease Consult date: 07/08/18 Requesting Physician: Yonny Coughlin Reason for Consult: Evaluate patient with neck infection from a dental source Primary Care Provider: No Primary Care Physician History of Present Illness: Patient seen and examined. Records reviewed. Patient is a 68-year-old male, presented to the hospital for further evaluation of and swelling in his neck and jaw. Patient on June 30, noted that he fractured the bottom left molar. Several hours after that he started having pain, and took some medication, and he was putting cold water which would relieve the pain for about 20 minutes. The pain went away, and around June for the pain came back so he decided to go to the urgent care center. There is also some swelling that developed on his left jaw, and patient was given a prescription for amoxicillin which reportedly he was taking twice a day. He was compliant with his medication, however he started noticing increasing pain, and noted that the swelling was getting worse. He went to the same urgent care center and from there he was told to go to the hospital for further evaluation and treatment. Patient denies any fever chills or sweats. He denies any shortness of breath as a result of the swelling, or any difficulty swallowing or drooling. Evaluation in the emergency room showed a white count of 21,000. CT of the neck is showing evidence of air and induration in the floor of the mouth and the left side of the neck. Patient was started on broad-spectrum antibiotics, and he has noted some mild improvement. Maxillofacial surgery is currently pending. Infectious disease consultation has been requested to assist with antibiotic management. Review of Systems Constitutional: Denies chills, Denies fever(s), Denies night sweats Eyes: Denies discharge, Denies dry eyes Ears, Nose, Mouth, and Throat: Reports dental pain, Reports mouth pain, Reports neck lump, Reports neck pain, Denies difficulty swallowing, Denies ear pain, Denies headache(s), Denies nasal discharge, Denies nasal obstruction, Denies pain with swallowing, Denies sore throat Cardiovascular: Reports shortness of breath, Denies chest pain, Denies leg swelling Respiratory: Reports shortness of breath, Denies chest congestion, Denies cough Gastrointestinal: Denies abdominal pain, Denies difficulty swallowing, Denies loose stools, Denies nausea, Denies pain with swallowing, Denies vomiting Genitourinary: Denies difficulty urinating, Denies painful urination Musculoskeletal: Reports neck pain, Denies joint pain, Denies joint swelling Skin/Breast: Denies rash, Denies sores PMFSH - History History Provided By: Patient - Medical History Medical History: Medical History (Last Reviewed 07/08/18 @ 10:17 by Lelo Samson MD) COPD (chronic obstructive pulmonary disease) Diabetes mellitus Diabetic neuropathy Hyperlipidemia Hypertension - Surgical History Surgical History: Surgical History (Last Reviewed 07/08/18 @ 10:17 by Lelo Samson MD) History of tonsillectomy - Family History Family History: Family History (Last Reviewed 07/08/18 @ 10:17 by Lelo Samson MD) Other Diabetes mellitus - Tobacco History Second Hand Smoke Exposure: No Tobacco Use In Past 30 Days: No Smoking Status: Never smoker Smoking End Date: Quit 10 years ago. - Alcohol History How Often Do You Have a Drink Containing Alcohol: 2 to 3 times a week - Substance Use History Substance History: No History of Abuse - Travel History Recent Travel in the [place] Within the Last 8 Weeks: No Recent Travel Out of the Country Within the Last 8 Weeks: No - Immunization History Tetanus Immunization: >5 Years Hx Influenza Vaccine This Season: Yes Medications and Allergies Active Medications: Active Medications Acetaminophen (Tylenol) 650 mg PO Q4H PRN PRN Reason: Temp > 100.4 Last Admin: 07/07/18 20:22 Dose: 650 mg Al Hydroxide/Mg Hydroxide (Milk Of Azar Liq) 30 ml PO Q12H PRN PRN Reason: Mild Constipation Bisacodyl (Dulcolax Supp) 10 mg RECTAL DAILY PRN PRN Reason: SEVERE CONSITIPATION Dextrose (D50w Vial) 50 ml IV.PUSH UNSCH PRN PRN Reason: PER HYPOGLYCEMIA PROTOCOL Glucagon (Glucagon Inj) 1 mg OTHER PRN PRN PRN Reason: for Hypoglycemia Protocol Sodium Chloride (Ns Inj) 1,000 mls @ 100 mls/hr IV.CONT .Q10H [facility] Last Admin: 07/08/18 06:14 Dose: Not Given Piperacillin/Tazobactam/Dextrose (Zosyn 3.375 Gm Premix) 3.375 gm in 50 mls @ 100 mls/hr IV.SIG Q6H [facility] Last Admin: 07/08/18 09:10 Dose: 100 mls/hr Vancomycin HCl 1,500 mg/ (Sodium Chloride) 515 mls @ 250 mls/hr IV.SIG Q24H [facility] Last Infusion: 07/07/18 12:38 Dose: Infused Insulin Aspart (Novolog Insulin Correctional Sugar Inj) 0 unit SQ ACHS AND 3AM [facility]; Protocol Last Admin: 07/08/18 09:08 Dose: Not Given Lactulose (Lactulose Liq) 30 ml PO DAILY PRN PRN Reason: SEVERE CONSITIPATION Losartan Potassium (Cozaar) 50 mg PO DAILY [facility] Last Admin: 07/07/18 08:17 Dose: 50 mg Miscellaneous Information ([facility] Ordered Lab Info) 0 each OTHER ONCE ONE Stop: 07/10/18 10:46 Morphine Sulfate (Morphine Inj) 2 mg IV.PUSH Q4H PRN PRN Reason: pain 6-10 Last Admin: 07/07/18 02:18 Dose: 2 mg Ondansetron HCl (Zofran Inj) 4 mg IV.PUSH Q6H PRN PRN Reason: NAUSEA OR VOMITING Patient Own Med- Tiotropium B[place]elia [ Spiriva Respimat] 0 each INH DAILY [facility] Pharmacy Profile Note (Vancomycin Consult Pharmacy) 1 each OTHER UNSCH PRN PRN Reason: Pharmacy to dose Pravastatin Sodium (Pravachol) 40 mg PO DAILY [facility] Last Admin: 07/08/18 09:10 Dose: 40 mg Senna/Docusate Sodium (Massiel-Colace) 1 tab PO BID [facility] Last Admin: 07/08/18 09:09 Dose: Not Given Sennosides (Senokot) 17.2 mg PO Q12H PRN PRN Reason: Moderate Constipation Sodium Chloride (Ns Flush) 2 ml IV.FLUSH BID [facility] Last Admin: 07/08/18 09:09 Dose: 2 ml Sodium Chloride (Ns Flush) 2 ml IV.FLUSH PRN PRN PRN Reason: FLUSH AFTER USING IV ACCESS Allergies Allergy/AdvReac Type Severity Reaction Status Date / Time No Known Allergies Allergy Verified 07/06/18 20:45 Home Medications Medication Instructions Recorded Confirmed Type glimepiride 2 mg PO QAM 07/06/18 07/06/18 History metformin 500 mg PO BID 07/06/18 07/06/18 History naproxen 500 mg PO BID 07/06/18 07/07/18 History pravastatin 40 mg PO DAILY 07/06/18 07/06/18 History telmisartan 40 mg PO DAILY 07/06/18 07/06/18 History tiotropium bromide [Spiriva 2 puff INHALATION DAILY 07/06/18 07/06/18 History Respimat] Exam Vital signs: Vital Signs 07/07/18 12:00 07/07/18 16:00 07/07/18 20:00 Temperature 98.3 F 97.8 F 97.7 F Pulse Rate 95 H 96 H 113 H Respiratory Rate 14 14 18 Blood Pressure 120/58 L 103/63 128/57 L Pulse Oximetry 96 97 95 07/07/18 20:36 07/08/18 00:00 07/08/18 02:58 Temperature 97.4 F L Pulse Rate 115 H Respiratory Rate 18 18 Blood Pressure 99/54 L Pulse Oximetry 95 98 07/08/18 07:45 Temperature 97.9 F Pulse Rate 75 Respiratory Rate 16 Blood Pressure 110/59 L Pulse Oximetry 98 Intake & Output 07/07/18 07/08/18 07/08/18 18:59 06:59 18:59 Intake Total 2615 / 2615 460 / 460 Balance 2615 / 2615 460 / 460 Weight 78.2 kg Intake: IV 2615 / 2615 100 / 100 NS Inj 1,000 ML @ 100 mls/hr IV 1999 / 1999 .CONT .Q10H [facility] Rx#:[id number] Zosyn 3.375 GM Premix 3.375 gm 100 / 100 100 / 100 In 50 ml @ 100 mls/hr IV.SIG Q6H [facility] Rx#:[id number] Vancomycin Inj 1,500 MG In NS 515 / 515 Inj 500 ML @ 250 mls/hr IV.SIG Q24H [facility] Rx#:[id number] Oral 360 / 360 Other: # Voids 4 2 Date of Last Bowel Movement 07/07/18 07/07/18 Narrative: Physical examination GENERAL: Patient is a well-nourished, well-developed male, awake and alert, not in respiratory distress. SKIN: Cool and dry. No generalized rash, no ecchymoses and no evidence of embolic lesions. HEAD: Atraumatic. Normocephalic. No temporal wasting, or tenderness. EYES: [place] conjunctiva. No petechia or hemorrhage. Pupils equal, round and reactive to light. Extraocular movements full and intact. No scleral icterus. No injection or drainage. EARS, NOSE AND THROAT: Nose without bleeding or purulent nasal discharge. No sinus tenderness. Mucous membranes pink and moist. Has poor dentition, and fractured tooth L lower molar. No oral thrush. NECK: Swelling and induration in submental and L submandibular area, with some tenderness. Supple, no meningeal signs CARDIOVASCULAR: Regular rate and rhythm. No murmurs, rubs or gallops heard RESPIRATORY: Clear to auscultation. Breath sounds equal bilaterally. No rales , wheezing or rhonchi ABDOMEN: Soft, non-tender, nondistended. Bowel sounds present and normoactive. No guarding. No rebound. No organomegaly. EXTREMITIES: No clubbing, cyanosis, or edema.No joint effusion, has good ROM. No calf tenderness. Well perfused and warm. NEUROLOGICAL: Awake and alert. Cranial nerves grossly intact. Motor grossly within normal limits. PSYCHIATRIC: Normal affect, calm and cooperative. LINE: No evidence of infection Results - Labs CBC & Chem 7: 07/08/18 06:10 07/08/18 06:10 Labs: Laboratory Results - last 24 hr 07/07/18 07/08/18 07/08/18 21:22 02:52 06:10 WBC RBC Hgb Hct MCV MCH MCHC RDW Plt Count MPV ESR Sodium Potassium Chloride Carbon Dioxide Anion Gap BUN Creatinine 1.28 Estimated GFR 56 L POC Glucose 209 H 88 Random Glucose Calcium Magnesium C-Reactive Protein 07/08/18 07/08/18 07/08/18 06:10 06:10 06:10 WBC 22.3 H RBC 3.08 L Hgb 10.6 L Hct 31.8 L MCV 103.1 H MCH 34.3 H MCHC 33.3 RDW 13.9 Plt Count 435 MPV 7.9 ESR 72 H Sodium 143 Potassium 3.4 L Chloride 114 H Carbon Dioxide 19.1 L Anion Gap 10 BUN 30 H Creatinine 1.32 H Estimated GFR 54 L POC Glucose Random Glucose 64 L Calcium 8.4 L Magnesium 2.1 C-Reactive Protein 26.00 H 07/08/18 09:08 WBC RBC Hgb Hct MCV MCH MCHC RDW Plt Count MPV ESR Sodium Potassium Chloride Carbon Dioxide Anion Gap BUN Creatinine Estimated GFR POC Glucose 80 Random Glucose Calcium Magnesium C-Reactive Protein - Imaging Chest CT 07/06/18 00:00 CONCLUSION: 1. Medial right apical lung mass is felt likely benign, potentially a bronchogenic cyst or GI duplication cyst. 2. There are additional nodules elsewhere in both lungs which warrant follow- up. Ideally I would recommend follow-up with outpatient PET/CT as none of these lesions appear appropriate for biopsy at present. 3. Probably benign findings in the upper abdomen. 4. Mild ascending thoracic aortic aneurysm. Soft Tissue Neck CT 07/06/18 20:45 CONCLUSION: Air and mild indurative change in the left floor of mouth and submandibular region which is presumably related to gas producing dental infection of some type. Chest X-Ray 07/06/18 20:46 CONCLUSION: Abnormal chest. Recommend including CT chest with the patient's planned additional imaging workup Assessment and Plan - Plan Impression Infection in neck, from dental source, abscess Possible sepsis due to dental infection Known COPD Leukocytosis Recommendation IV Unasyn Maxillofacial surgery evaluation Monitor progress I will follow along with you Thank you for this consultation Explained plan to patient D/W Dr Cara Coughlin
--- NOTE | 2018-07-08 12:27 | P.PNIM ---
Subjective Interval history: Patient seen and examined this afternoon swelling present but no subjective fever or chills endorsed patient reports that swallowing is ok [facility] contacted. They will see patient in clinic if stable from medical viewpoint otherwise recommend transfer to facility if urgently needs OR Infectious disease consulted to aid primary team no pus noted by patient overnight given pain medication for jaw/neck pain WBC increased > 20K Physical Exam Vital signs: Vital Signs 07/07/18 16:00 07/07/18 20:00 07/07/18 20:36 Temperature 97.8 F 97.7 F Pulse Rate 96 H 113 H Respiratory Rate 14 18 Blood Pressure 103/63 128/57 L Pulse Oximetry 97 95 95 07/08/18 00:00 07/08/18 02:58 07/08/18 07:45 Temperature 97.4 F L 97.9 F Pulse Rate 115 H 75 Respiratory Rate 18 18 16 Blood Pressure 99/54 L 110/59 L Pulse Oximetry 98 98 Intake & Output 07/07/18 07/08/18 07/08/18 18:59 06:59 18:59 Intake Total 2615 / 2615 460 / 460 Balance 2615 / 2615 460 / 460 Weight 78.2 kg Intake: IV 2615 / 2615 100 / 100 NS Inj 1,000 ML @ 100 mls/hr IV 1999 / 1999 .CONT .Q10H [facility] Rx#:[id number] Zosyn 3.375 GM Premix 3.375 gm 100 / 100 100 / 100 In 50 ml @ 100 mls/hr IV.SIG Q6H [facility] Rx#:[id number] Vancomycin Inj 1,500 MG In NS 515 / 515 Inj 500 ML @ 250 mls/hr IV.SIG Q24H [facility] Rx#:[id number] Oral 360 / 360 Other: # Voids 4 2 Date of Last Bowel Movement 07/07/18 07/07/18 07/07/18 Gen.: No acute distress Head: Normocephalic. Atraumatic. HEENT: Pupils equal round and reactive to light. Nose without drainage. Airway intact. Throat without injection. Multiple caries with diffusely erythematous tissue around. Left side of the jaw and left neck swollen and erythematous with induration but minimal fluctuance. Cardiovascular: Regular rate and rhythm. No murmurs, rubs or gallops. Respiratory: Lungs clear to auscultation bilaterally. No wheezes or rhonchi. Abdomen: Soft, nontender, nondistended. No peritoneal signs. Musculoskeletal: No gross deformities. No edema. Neuro: Sensory and motor grossly intact. Cranial nerves II through XII grossly intact. Results Labs CBC & Chem 7: 07/08/18 06:10 07/08/18 06:10 Labs: Microbiology 07/06/18 20:55 Blood - Peripheral Aerobic Blood Culture - Preliminary No growth in 2 days 07/06/18 20:55 Blood - Peripheral Anaerobic Blood Culture - Preliminary No growth in 2 days 07/06/18 20:50 Blood - Peripheral Aerobic Blood Culture - Preliminary No growth in 2 days 07/06/18 20:50 Blood - Peripheral Anaerobic Blood Culture - Preliminary No growth in 2 days Assessment and Plan Plan Patient is a 68-year-old male with past medical history of hyperlipidemia, hypertension, diabetes mellitus presenting with jaw erythema swelling admitted and found on CAT scan to have significant soft tissue swelling. Infectious disease: Soft tissue infection ENT consulted but recommend OFMS evaluation Blood culture: No growth to date x2 Monitor vancomycin trough Pain control: Naproxen [address] imaging reviewed. No evidence of Abscess formation in the chest - considerations: In general, antimicrobial therapy should be continued for two to three weeks until clear evidence of clinical improvement is present, and fever and leucocytosis have subsided. Sequential C-reactive protein measurement is a useful tool for monitoring the progress of such patients - ESR/CRP reviewed and elevated - Infectious disease consulted and following - Adjusted abx regimen as recommended unasyn --> augmentin possibly for discharge Pulmonary: Lung nodule Outpatient follow-up with PET/CT scan. Cardiology: Hyperlipidemia, hypertension Continue losartan 50 mg Pravastatin 40 mg p.o. Endocrinology: Diabetes mellitus Insulin correctional scale code: FC dvt ppx: ambulation dispo: patient is self pay, will clairfy with CM team. will see response to new abx, if no improvement will consider transfer for OR Progress Note: Quality VTE Deep Vein Thrombosis/Pulmonary Embolism Present on Admission: No
[2018-07-08] MEDS: Ampicillin/Sulbactam Inj 3 GM in Sodium Chloride 0.9% Inj 100 ML IV.SIG SCH ×3 (12:49→22:28)
[2018-07-08] MEDS ORDERED: Naproxen 500 MG Tablet PO PRN (14:00)
[2018-07-08] MEDS ORDERED: Naproxen 250 MG Tablet PO PRN (15:45)
[2018-07-09] MEDS: Insulin NovoLOG Aspart Correctional Sugar Inj SQ SCH ×5 (03:17→21:24)
[2018-07-09] MEDS: Sod Chloride 0.9% Inj 1,000 ML IV.CONT SCH ×3 (06:23→21:15)
[2018-07-09] MEDS: Ampicillin/Sulbactam Inj 3 GM in Sodium Chloride 0.9% Inj 100 ML IV.SIG SCH ×4 (06:23→23:37)
[2018-07-09] MEDS: Senna/Docusate Sodium 8.6/50 MG Tablet PO SCH ×2 (09:46→21:15)
--- NOTE | 2018-07-09 12:46 | P.PNID ---
Subjective Remarks: Patient is a 68-year-old male, presented to the hospital for further evaluation of and swelling in his neck and jaw. Patient on June 30, noted that he fractured the bottom left molar. Several hours after that he started having pain, and took some medication, and he was putting cold water which would relieve the pain for about 20 minutes. The pain went away, and around June for the pain came back so he decided to go to the urgent care center. There is also some swelling that developed on his left jaw, and patient was given a prescription for amoxicillin which reportedly he was taking twice a day. He was compliant with his medication, however he started noticing increasing pain, and noted that the swelling was getting worse. He went to the same urgent care center and from there he was told to go to the hospital for further evaluation and treatment. Patient denies any fever chills or sweats. He denies any shortness of breath as a result of the swelling, or any difficulty swallowing or drooling. Evaluation in the emergency room showed a white count of 21,000. CT of the neck is showing evidence of air and induration in the floor of the mouth and the left side of the neck. Patient was started on broad-spectrum antibiotics, and he has noted some mild improvement. Maxillofacial surgery is currently pending. Infectious disease consultation has been requested to assist with antibiotic management. Notes reviewed No fever Anxious to go home D/W Dr Ced CLOUD will see patient as outpatient Not SOB Swallowing well Antibiotics: Unasyn Lines: PIV Past Medical History: COPD (chronic obstructive pulmonary disease) Diabetes mellitus Diabetic neuropathy Hyperlipidemia Hypertension Tonsillectomy Allergies/Adverse Reactions: Allergies No Known Allergies Allergy (Verified 07/06/18 20:45) Objective Vital Signs 07/08/18 16:00 07/08/18 20:00 07/09/18 00:00 Temperature 98.0 F 97.5 F L 98.3 F Pulse Rate 85 90 92 H Respiratory Rate 16 16 17 Blood Pressure 127/59 L 129/68 126/69 Pulse Oximetry 97 96 96 07/09/18 08:00 07/09/18 12:00 Temperature 97.9 F 98.1 F Pulse Rate 105 H 103 H Respiratory Rate 16 16 Blood Pressure 163/73 H 149/73 H Pulse Oximetry 98 98 Intake & Output 01/09/19 01/10/19 01/10/19 18:59 06:59 18:59 Intake Total 1100 / 1100 1900 / 1900 100 / 100 Balance 1100 / 1100 1900 / 1900 100 / 100 Weight 72.5 kg Intake: IV 1100 / 1100 1300 / 1300 100 / 100 NS Inj 1,000 ML @ 100 mls/hr IV 1000 / 1000 1000 / 1000 .CONT .Q10H [facility] Rx#:[id number] Unasyn Inj 3 GM In NS Inj 100 100 / 100 300 / 300 100 / 100 ML @ 200 mls/hr IV.SIG Q6H [facility] Rx#:[id number] Oral 600 / 600 Other: # Voids 5 Date of Last Bowel Movement 07/07/18 07/06/18 20:55 Blood - Peripheral Aerobic Blood Culture - Preliminary No growth in 3 days 07/06/18 20:55 Blood - Peripheral Anaerobic Blood Culture - Preliminary No growth in 3 days 07/06/18 20:50 Blood - Peripheral Aerobic Blood Culture - Preliminary No growth in 3 days 07/06/18 20:50 Blood - Peripheral Anaerobic Blood Culture - Preliminary No growth in 3 days Lab - Hematology Results 07/08/18 07/08/18 06:10 06:10 WBC 22.3 H RBC 3.08 L Hgb 10.6 L Hct 31.8 L MCV 103.1 H MCH 34.3 H MCHC 33.3 RDW 13.9 Plt Count 435 MPV 7.9 ESR 72 H Lab - Chemistry Results 07/07/18 07/08/18 07/08/18 21:22 02:52 06:10 Sodium Potassium Chloride Carbon Dioxide Anion Gap BUN Creatinine 1.28 Estimated GFR 56 L POC Glucose 209 H 88 Random Glucose Calcium Magnesium C-Reactive Protein 07/08/18 07/08/18 07/08/18 06:10 09:08 12:53 Sodium 143 Potassium 3.4 L Chloride 114 H Carbon Dioxide 19.1 L Anion Gap 10 BUN 30 H Creatinine 1.32 H Estimated GFR 54 L POC Glucose 80 134 H Random Glucose 64 L Calcium 8.4 L Magnesium 2.1 C-Reactive Protein 26.00 H 07/08/18 07/08/18 07/09/18 18:04 20:55 08:12 Sodium Potassium Chloride Carbon Dioxide Anion Gap BUN Creatinine Estimated GFR POC Glucose 73 85 39 L* Random Glucose Calcium Magnesium C-Reactive Protein 07/09/18 07/09/18 07/09/18 08:14 08:38 08:59 Sodium Potassium Chloride Carbon Dioxide Anion Gap BUN Creatinine Estimated GFR POC Glucose 42 L* 69 106 Random Glucose Calcium Magnesium C-Reactive Protein Imaging: ITS Impressions Chest CT 07/06/18 00:00 CONCLUSION: 1. Medial right apical lung mass is felt likely benign, potentially a bronchogenic cyst or GI duplication cyst. 2. There are additional nodules elsewhere in both lungs which warrant follow- up. Ideally I would recommend follow-up with outpatient PET/CT as none of these lesions appear appropriate for biopsy at present. 3. Probably benign findings in the upper abdomen. 4. Mild ascending thoracic aortic aneurysm. Soft Tissue Neck CT 07/06/18 20:45 CONCLUSION: Air and mild indurative change in the left floor of mouth and submandibular region which is presumably related to gas producing dental infection of some type. Chest X-Ray 07/06/18 20:46 CONCLUSION: Abnormal chest. Recommend including CT chest with the patient's planned additional imaging workup Physical Exam: GENERAL: awake and alert, not in respiratory distress. SKIN: Cool and dry. No generalized rash HEAD: Atraumatic. Normocephalic. No temporal wasting, or tenderness. EYES: [place] conjunctiva. No petechia or hemorrhage. No scleral icterus. No injection or drainage. EARS, NOSE AND THROAT: Nose without bleeding or purulent nasal discharge. Mucous membranes pink and moist. Has poor dentition, and fractured tooth L lower molar. No oral thrush. NECK: Swelling and induration mostly in submental, and ?possibly starting to organize more on L, with scab developing; the swelling in L submandibular area markedly improved. Still with that pink area over upper sternal area, that is not tender. Supple, no meningeal signs CARDIOVASCULAR: Regular rate and rhythm. No murmurs, rubs or gallops heard RESPIRATORY: Clear to auscultation. Breath sounds equal bilaterally. No rales , wheezing or rhonchi ABDOMEN: Soft, non-tender, nondistended. Bowel sounds present and normoactive. No guarding. No rebound. No organomegaly. EXTREMITIES: No clubbing, cyanosis, or edema. No calf tenderness. NEUROLOGICAL: Grossly non-focal PSYCHIATRIC: Normal affect, calm and cooperative. LINE: No evidence of infection Assessment and Plan - Plan Impression Infection in neck, from dental source, abscess Possible sepsis due to dental infection Known COPD Leukocytosis Recommendation IV Unasyn Repeat CT soft tissue of neck Monitor progress Explained plan to patient D/W Dr Cara Coughlin D/W RN
--- NOTE | 2018-07-09 13:42 | P.PNIM ---
Subjective Interval history: Evaluated at bedside. Patient without acute complaints of subjective fever or chills. Patient reported that she feels better with IV antibiotics. Patient was evaluated with infectious disease present at the bedside. Physical Exam Vital signs: Vital Signs 07/08/18 16:00 07/08/18 20:00 07/09/18 00:00 Temperature 98.0 F 97.5 F L 98.3 F Pulse Rate 85 90 92 H Respiratory Rate 16 16 17 Blood Pressure 127/59 L 129/68 126/69 Pulse Oximetry 97 96 96 07/09/18 08:00 07/09/18 12:00 Temperature 97.9 F 98.1 F Pulse Rate 105 H 103 H Respiratory Rate 16 16 Blood Pressure 163/73 H 149/73 H Pulse Oximetry 98 98 Intake & Output 07/08/18 07/09/18 07/09/18 18:59 06:59 18:59 Intake Total 1100 / 1100 1900 / 1900 100 / 100 Balance 1100 / 1100 1900 / 1900 100 / 100 Weight 72.5 kg Intake: IV 1100 / 1100 1300 / 1300 100 / 100 NS Inj 1,000 ML @ 100 mls/hr IV 1000 / 1000 1000 / 1000 .CONT .Q10H [facility] Rx#:[id number] Unasyn Inj 3 GM In NS Inj 100 100 / 100 300 / 300 100 / 100 ML @ 200 mls/hr IV.SIG Q6H [facility] Rx#:[id number] Oral 600 / 600 Other: # Voids 5 Date of Last Bowel Movement 07/07/18 General: No acute distress HEENT: Forearm masslike palpable region on the lower jaw region with small 1 x 1 cm ulcerated area not draining. No pus noted. EOMI, PERRLA Cardiovascular: S1/S2. Respiratory: Clear to auscultation bilaterally Extremity: No lower extremity edema Results Labs CBC & Chem 7: 07/08/18 06:10 07/08/18 06:10 Labs: Microbiology 07/06/18 20:55 Blood - Peripheral Aerobic Blood Culture - Preliminary No growth in 3 days 07/06/18 20:55 Blood - Peripheral Anaerobic Blood Culture - Preliminary No growth in 3 days 07/06/18 20:50 Blood - Peripheral Aerobic Blood Culture - Preliminary No growth in 3 days 07/06/18 20:50 Blood - Peripheral Anaerobic Blood Culture - Preliminary No growth in 3 days Assessment and Plan Plan Patient is a 68-year-old male with past medical history of hyperlipidemia, hypertension, diabetes mellitus presenting with jaw erythema swelling admitted and found on CAT scan to have significant soft tissue swelling. Infectious disease: Soft tissue infection ENT consulted but recommend OFMS evaluation Blood culture: No growth to date x3 Monitor vancomycin trough Pain control: Naproxen [address] imaging reviewed. No evidence of Abscess formation in the chest - considerations: In general, antimicrobial therapy should be continued for two to three weeks until clear evidence of clinical improvement is present, and fever and leucocytosis have subsided. Sequential C-reactive protein measurement is a useful tool for monitoring the progress of such patients - Infectious disease consulted and following -Continue Unasyn Repeat CT imaging of chest and soft tissue of the neck to monitor for developing abscess formation of present. If present patient may benefit from transfer to facility for surgical intervention. Case briefly discussed with oral facial maxillary team. If patient is stable on IV antibiotics may follow-up in clinic otherwise if decompensating or deteriorating will recommend patient be transferred to facility for evaluation. Pulmonary: Lung nodule Outpatient follow-up with PET/CT scan. Cardiology: Hyperlipidemia, hypertension Hold losartan 50 mg given acute kidney injury Pravastatin 40 mg p.o. Endocrinology: Diabetes mellitus Insulin correctional scale Nephrology: Acute kidney injury Encourage p.o. intake Chemistry in the morning code: FC dvt ppx: ambulation dispo: patient is self pay (see case management note for explanation). will see response to new abx, if no improvement will consider transfer for OR Progress Note: Quality VTE Deep Vein Thrombosis/Pulmonary Embolism Present on Admission: No
[2018-07-09] MEDS ORDERED: Hold Metfromin until further notice OTHER ONE (14:00)
[2018-07-09] MEDS ORDERED: Naproxen 250 MG Tablet PO PRN (14:30)
[2018-07-10] MEDS: Insulin NovoLOG Aspart Correctional Sugar Inj SQ SCH ×5 (02:55→21:39)
[2018-07-10 05:40] LABS: Hematocrit 31.6 % (39.0-51.0); Hemoglobin 10.4 gm/dL (13.0-17.0); Mean Corpuscular HGB Conc 32.7 % (32.0-36.0); Mean Corpuscular Hemoglobin 33.3 pg (27.0-34.0); Mean Corpuscular Volume 101.8 fL (80.0-100.0); Mean Platelet Volume 7.6 fL (7.0-11.0); Platelet Count 548 th/mm3 (150-450); Red Blood Count 3.11 mil/mm3 (4.50-5.90); Red Cell Distribution Width 14.3 % (11.6-17.2); White Blood Count 16.1 th/mm3 (4.0-11.0)
[2018-07-10] MEDS: Ampicillin/Sulbactam Inj 3 GM in Sodium Chloride 0.9% Inj 100 ML IV.SIG SCH ×5 (06:02→22:20)
[2018-07-10] MEDS: Senna/Docusate Sodium 8.6/50 MG Tablet PO SCH ×2 (09:30→21:39)
--- NOTE | 2018-07-10 10:00 | CT ---
EXAM DATE: 07/10/2018 9:47 AM EST AGE/SEX: 68 years / Male INDICATIONS: Submandibular swelling, now with scabbing. Evaluate for abscess. CLINICAL DATA: This is the patient's initial encounter. Patient reports that signs and symptoms have been present for 3 days and indicates a pain score of 5/10. MEDICAL/SURGICAL HISTORY: Chronic obstructive pulmonary disease. Hypertension. Diabetes. None. RADIATION DOSE: 15.82 CTDI (mGy) COMPARISON: [facility] – [place], [place] SOFT TISSUE NECK W CONTRAST, 07/06/2018. . TECHNIQUE: Helical acquisition was performed using a multirow detector CT scanner during the adminis tration of 46 ml Omnipaque 350 (iohexol) nonionic water-soluble contrast as a single exam dose. Usi ng automated exposure control and adjustment of the mA and/or kV according to patient size, radiation dose was kept as low as reasonably achievable to obtain optimal diagnostic quality images. DICOM fo rmat image data is available electronically for review and comparison. FINDINGS: The parotid glands, submandibular glands, thyroid glands appear intact. The visceral compartment is grossly intact without infiltrating mass. The right maxillary sinus is almost completely opacified. T here is moderate vascular plaquing involving the carotid arteries. There is an area of gas collection in the anterior portion of the tongue which partially extends into the sublingual space and submenta l location mixed with fluid maximum dimension of 4.1 cm. The overall size has not significantly dubon ed, however the prior study from 07/06/2018 demonstrated more gas within it and on today's exam there i s more fluid within it. There are small lymph nodes within the neck bilaterally most likely benign. A pproximate 3.8 cm right apical lung mass is present discussed on the patient's prior chest CT examina tions not significantly changed. There is also scarring in the left apex. CONCLUSION: The previously seen gas collection in the anterior portion of the patient's lung with ex tension into some single space and partially submental space has not changed in size, however has mor e fluid and induration of subcutaneous fat since the prior study highly suspicious for focal abscess. Electronically signed by: Emili Rosas MD Board Certified Radiologist 07/10/2018 9:59 AM EST
--- NOTE | 2018-07-10 10:05 | CT ---
EXAM DATE: 07/10/2018 9:47 AM EST AGE/SEX: 68 years / Male INDICATIONS: Submandibular swelling, now with scabbing. Evaluate for abscess. CLINICAL DATA: This is the patient's initial encounter. Patient reports that signs and symptoms have been present for 1 day and indicates a pain score of 5/10. MEDICAL/SURGICAL HISTORY: Chronic obstructive pulmonary disease. Hypertension. Diabetes. None. RADIATION DOSE: 6.79 CTDI (mGy) COMPARISON: [facility] – [place], CT CHEST W CONTRAST, 07/06/2018. . TECHNIQUE: Multiple contiguous axial images were obtained through the chest during bolus infusion of 46 ml Omnipaque 350 (iohexol) nonionic water-soluble contrast as a single exam dose. Images were obtained in suspended respiration using multiple row detector helical technique. Using automated exp osure control and adjustment of the mA and/or kV according to patient size, radiation dose was kept a s low as reasonably achievable to obtain optimal diagnostic quality images. DICOM format image data is available electronically for review and comparison. FINDINGS: Subcentimeter cyst is present in the liver. Approximate 2.8 cm mass is seen in right adrenal gland no t changed. There is also an approximate 3.6 cm smooth well-defined round mass right apex of the lung medially not changed. Approximate 1.5 cm irregular density is also seen in the anterior portion of th e lingula on the left side not changed possible area of scar. Ascending aorta measures 4.2 cm in size slightly aneurysmal and not changed. The rest of the examination has not changed. CONCLUSION: 1. There is no change in right apical lung mass with additional area of spiculated density within li ngula and scattered areas of scarring in both lungs. Findings are indeterminate in regards to maligna ncy could be further characterized with F-18 FDG PET/CT based on clinical grounds. 2. Right adrenal mass not changed nonspecific in regards to metastatic disease could be a large chel bell. Tiny subcentimeter hepatic cysts not significantly changed. Electronically signed by: Emili Rosas MD Board Certified Radiologist 07/10/2018 10:03 AM EST
[2018-07-10] MEDS ORDERED: Pharmacy Ordered Lab Info OTHER ONE (10:45)
--- NOTE | 2018-07-10 12:53 | P.PNID ---
Subjective Remarks: Patient is a 68-year-old male, presented to the hospital for further evaluation of and swelling in his neck and jaw. Patient on June 30, noted that he fractured the bottom left molar. Several hours after that he started having pain, and took some medication, and he was putting cold water which would relieve the pain for about 20 minutes. The pain went away, and around June for the pain came back so he decided to go to the urgent care center. There is also some swelling that developed on his left jaw, and patient was given a prescription for amoxicillin which reportedly he was taking twice a day. He was compliant with his medication, however he started noticing increasing pain, and noted that the swelling was getting worse. He went to the same urgent care center and from there he was told to go to the hospital for further evaluation and treatment. Patient denies any fever chills or sweats. He denies any shortness of breath as a result of the swelling, or any difficulty swallowing or drooling. Evaluation in the emergency room showed a white count of 21,000. CT of the neck is showing evidence of air and induration in the floor of the mouth and the left side of the neck. Patient was started on broad-spectrum antibiotics, and he has noted some mild improvement. Maxillofacial surgery is currently pending. Infectious disease consultation has been requested to assist with antibiotic management. Notes reviewed No fever No new complaint D/W Dr Coughlin Repeat CT neck - decreased gas, but with fuid collection seen Not SOB Swallowing well Antibiotics: Unasyn Lines: PIV Past Medical History: COPD (chronic obstructive pulmonary disease) Diabetes mellitus Diabetic neuropathy Hyperlipidemia Hypertension Tonsillectomy Allergies/Adverse Reactions: Allergies No Known Allergies Allergy (Verified 07/06/18 20:45) Objective Vital Signs 07/09/18 16:00 07/09/18 20:00 07/10/18 00:00 Temperature 98.3 F 98 F 98.1 F Pulse Rate 102 H 101 H 102 H Respiratory Rate 16 20 18 Blood Pressure 143/73 H 154/72 H 165/74 H Pulse Oximetry 99 98 99 07/10/18 08:00 07/10/18 12:00 Temperature 98.5 F 98.1 F Pulse Rate 98 H 96 H Respiratory Rate 18 20 Blood Pressure 166/83 H 180/87 H Pulse Oximetry 99 98 Intake & Output 07/09/18 07/10/18 07/10/18 18:59 06:59 18:59 Intake Total 2400 / 2400 1640 / 1640 Balance 2400 / 2400 1640 / 1640 Intake: IV 1200 / 1200 200 / 200 NS Inj 1,000 ML @ 100 mls/hr IV 1000 / 1000 .CONT .Q10H [facility] Rx#:[id number] Unasyn Inj 3 GM In NS Inj 100 200 / 200 200 / 200 ML @ 200 mls/hr IV.SIG Q6H [facility] Rx#:[id number] Oral 1200 / 1200 1440 / 1440 Other: # Voids 5 6 Date of Last Bowel Movement 07/07/18 07/06/18 20:55 Blood - Peripheral Aerobic Blood Culture - Preliminary No growth in 4 days 07/06/18 20:55 Blood - Peripheral Anaerobic Blood Culture - Preliminary No growth in 4 days 07/06/18 20:50 Blood - Peripheral Aerobic Blood Culture - Preliminary No growth in 4 days 07/06/18 20:50 Blood - Peripheral Anaerobic Blood Culture - Preliminary No growth in 4 days Lab - Hematology Results 07/10/18 05:13 WBC 16.1 H RBC 3.11 L Hgb 10.4 L Hct 31.6 L MCV 101.8 H MCH 33.3 MCHC 32.7 RDW 14.3 Plt Count 548 H MPV 7.6 Lab - Chemistry Results 07/08/18 07/08/18 07/08/18 12:53 18:04 20:55 POC Glucose 134 H 73 85 07/09/18 07/09/18 07/09/18 08:12 08:14 08:38 POC Glucose 39 L* 42 L* 69 07/09/18 07/09/18 07/09/18 08:59 12:45 12:52 POC Glucose 106 208 H 182 H 07/09/18 07/09/18 07/10/18 15:30 21:23 05:17 POC Glucose 154 H 145 H 113 H 07/10/18 11:44 POC Glucose 154 H Imaging: ITS Impressions Chest X-Ray 07/06/18 20:46 CONCLUSION: Abnormal chest. Recommend including CT chest with the patient's planned additional imaging workup Chest CT 07/10/18 00:00 CONCLUSION: 1. There is no change in right apical lung mass with additional area of spiculated density within lingula and scattered areas of scarring in both lungs. Findings are indeterminate in regards to malignancy could be further characterized with F-18 FDG PET/CT based on clinical grounds. 2. Right adrenal mass not changed nonspecific in regards to metastatic disease could be a large adenoma. Tiny subcentimeter hepatic cysts not significantly changed. Soft Tissue Neck CT 07/10/18 00:00 CONCLUSION: The previously seen gas collection in the anterior portion of the patient's lung with extension into some single space and partially submental space has not changed in size, however has more fluid and induration of subcutaneous fat since the prior study highly suspicious for focal abscess. Physical Exam: GENERAL: awake and alert, not in respiratory distress. SKIN: Cool and dry. No generalized rash HEAD: Atraumatic. Normocephalic. No temporal wasting, or tenderness. EYES: [place] conjunctiva. No petechia or hemorrhage. No scleral icterus. No injection or drainage. EARS, NOSE AND THROAT: Nose without bleeding or purulent nasal discharge. Mucous membranes pink and moist. Has poor dentition, and fractured tooth L lower molar. No oral thrush. NECK: Swelling and induration mostly in submental in submental,, and ? possibly starting to organize, with multiple scabs noted, more than yesterday. The swelling in L submandibular area markedly improved. Supple, no meningeal signs CARDIOVASCULAR: Regular rate and rhythm. No murmurs, rubs or gallops heard RESPIRATORY: Clear to auscultation. Breath sounds equal bilaterally. No rales , wheezing or rhonchi ABDOMEN: Soft, non-tender, nondistended. Bowel sounds present and normoactive. No guarding. No rebound. No organomegaly. EXTREMITIES: No clubbing, cyanosis, or edema. No calf tenderness. NEUROLOGICAL: Grossly non-focal PSYCHIATRIC: Normal affect, calm and cooperative. LINE: No evidence of infection Assessment and Plan - Plan Impression Infection in neck, from dental source, abscess Possible sepsis due to dental infection Known COPD Leukocytosis Recommendation Continue IV Unasyn D/W Dr Coughlin Will transfer to [place] Monitor progress
--- NOTE | 2018-07-10 13:47 | P.DS ---
DS: Providers Date of admission: 07/06/18 22:56 Primary care physician: No Primary Care Physician Consults: 07/06/18 23:27 Consult to ENT Routine Consulting Provider: Ruel Melton Reason for Consultation: Air and mild indurative change in the left floor of mouth and submandibular region. Notified:: Service Spoke with:: che Date Notified:: 07/07/18 Time Notified:: 02:04 Ordering Provider: ADRIANA 07/07/18 16:02 Consult to Oromaxillofacial Surgery Routine Consulting Provider: Call Back Reason for Consultation: consult to oral surgery for odontogenic neck infection Notified:: Office Spoke with:: Carmelina Date Notified:: 07/07/18 Time Notified:: 16:08 Comments:: Dr. Riddle declined consult (dental problem, not oralmaxillofacial), called to pt's nurse to let them know to have Dr. Melton cancel the consult. DK 07/07/18 1628 Ordering Provider: JULIO CÉSAR 07/08/18 07:30 Consult to Infectious Diseases Routine Consulting Provider: Lelo Samson Reason for Consultation: abx recommendation and duration. no dental available for a consult. [phone] hospitalist cell. Notified:: Service Spoke with:: romina Date Notified:: 07/08/18 Time Notified:: 07:39 Ordering Provider: RADHA Brief History from admission: 68-year-old male with a past medical history significant for diabetes mellitus, hypertension, hyperlipidemia and COPD presents to the emergency department for the evaluation of pain and swelling in his left jaw and left neck. The patient reports that on 06/28 he cracked his bottom left molar. He did not seek treatment as the broken tooth was not bothering him at that time. He reports that by 06/30 his tooth had started hurting. He then noticed left-sided jaw swelling with accompanying pain. One week ago, the patient went to urgent care and was prescribed amoxicillin and naproxen. He took his medications as prescribed however his symptoms continued to worsen. He returned to urgent care today who sent him to the [facility] for further evaluation of failed outpatient therapy. The patient denies any fever/chills. He denies any chest pain or shortness of breath. No abdominal pain. No nausea/vomiting/diarrhea. No focal neurologic deficits. DS: Summary Patient is a very pleasant 68-year-old male with past medical history of hypertension and diabetes type 2 who presents to [facility] for jaw swelling and pain. Patient reports back on June 28 he originally injured his bottom left molar tooth. Patient reports that he did not initially seek treatment but after developing pain on the left side of his jaw he went to an urgent care center and was prescribed amoxicillin and naproxen and told to follow-up with a physician. Patient reports that he took the medication without any improvement and return to the urgent care center where he was immediately referred to [facility] for evaluation. In emergency department patient received initial CAT scan Of the neck presumably related to a gas producing dental infection of the neck which showed air and mild indurative change in the left floor of the mouth and submandibular region. Patient also received a CT chest at the time which showed nodules and the lungs with recommendation for outpatient PET/CT scan as none of the lesions appeared appropriate for biopsy at the present moment. This was discussed with the patient on 07/10 again prior to planned transfer. At the time patient reports that with everything else going on with his jaw and neck swelling he did not feel like he want to pursue anything at this moment but was made aware of the finding on CAT scan. infectious disease consultation was appreciated during hospitalization and patient was started on IV Unasyn. Patient was also evaluated by ENT but his problem was felt to be an oral facial maxillary surgery condition requiring possible drainage. Unfortunately [facility] does not have an on-call physician for that service at this time therefore consultation for possible transfer was initiated with outside facility. Case was discussed with Dr. Aceves of [facility] regarding patient's case as repeat imaging on 07/10 of the soft tissue neck revealed possible development of underlying abscess. At this time this is a new finding with patient having white blood cell count as high as 22.3. Given location of swelling there is a concern for possible respiratory decompensation if patient were to be discharged with outpatient follow-up with local oral facial maxillary surgeon and given comorbidity of diabetes there is a high risk for deterioration if patient does not receive more immediate care. Oral facial maxillary service is willing to accept the patient for evaluation and hospitalist service has been contacted and has accepted the patient as a transfer. Infectious disease recommends to continue IV Unasyn in the interim. Blood cultures to this point have been negative times 4 days. Patient is otherwise clinically stable hemodynamically for transfer once a bed is available. Time Spent with Patient Total time spent providing and/or coordinating discharge services: > 30 min Patient is a very pleasant 68-year-old male with past medical history of hypertension and diabetes type 2 who presents to [facility] for jaw swelling and pain. Patient reports back on June 28 he originally injured his bottom left molar tooth. Patient reports that he did not initially seek treatment but after developing pain on the left side of his jaw he went to an urgent care center and was prescribed amoxicillin and naproxen and told to follow-up with a physician. Patient reports that he took the medication without any improvement and return to the urgent care center where he was immediately referred to [facility] for evaluation. In emergency department patient received initial CAT scan Of the neck presumably related to a gas producing dental infection of the neck which showed air and mild indurative change in the left floor of the mouth and submandibular region. Patient also received a CT chest at the time which showed nodules and the lungs with recommendation for outpatient PET/CT scan as none of the lesions appeared appropriate for biopsy at the present moment. This was discussed with the patient on 07/10 again prior to planned transfer. At the time patient reports that with everything else going on with his jaw and neck swelling he did not feel like he want to pursue anything at this moment but was made aware of the finding on CAT scan. infectious disease consultation was appreciated during hospitalization and patient was started on IV Unasyn. Patient was also evaluated by ENT but his problem was felt to be an oral facial maxillary surgery condition requiring possible drainage. Unfortunately [facility] does not have an on-call physician for that service at this time therefore consultation for possible transfer was initiated with outside facility. Case was discussed with Dr. Aceves of [facility] regarding patient's case as repeat imaging on 07/10 of the soft tissue neck revealed possible development of underlying abscess. At this time this is a new finding with patient having white blood cell count as high as 22.3. Given location of swelling there is a concern for possible respiratory decompensation if patient were to be discharged with outpatient follow-up with local oral facial maxillary surgeon and given comorbidity of diabetes there is a high risk for deterioration if patient does not receive more immediate care. Oral facial maxillary service is willing to accept the patient for evaluation and hospitalist service has been contacted and has accepted the patient as a transfer. Infectious disease recommends to continue IV Unasyn in the interim. Blood cultures to this point have been negative times 4 days. Patient is otherwise clinically stable hemodynamically for transfer once a bed is available. Quality: VTE Deep Vein Thrombosis/Pulmonary Embolism Present on Admission: No Exam Narrative Exam Narrative: General: No acute distress HEENT: Fluctuant mass and submandibular region with ulcerated area at the base of the mandible. No pus noted. Mild tenderness appreciated. EOMI Cardiovascular: S1/S2. Regular rate and rhythm Respiratory: Clear to auscultation bilaterally Gastroenterology: Soft, nontender, nondistended, no guarding or rebound appreciated. Externally: No edema or calf tenderness Results Labs on day of discharge: Labs from last 24 hours 07/10/18 07/10/18 07/10/18 11:44 05:17 05:13 WBC 16.1 H RBC 3.11 L Hgb 10.4 L Hct 31.6 L MCV 101.8 H MCH 33.3 MCHC 32.7 RDW 14.3 Plt Count 548 H MPV 7.6 POC Glucose 154 H 113 H 07/09/18 07/09/18 21:23 15:30 WBC RBC Hgb Hct MCV MCH MCHC RDW Plt Count MPV POC Glucose 145 H 154 H Preliminary micro results at discharge 07/06/18 20:55 Aerobic Blood Culture - Preliminary Blood - Peripheral No growth in 4 days Anaerobic Blood Culture - Preliminary No growth in 4 days 07/06/18 20:50 Aerobic Blood Culture - Preliminary Blood - Peripheral No growth in 4 days Anaerobic Blood Culture - Preliminary No growth in 4 days Impressions ITS Impressions Chest X-Ray 07/06/18 20:46 CONCLUSION: Abnormal chest. Recommend including CT chest with the patient's planned additional imaging workup Chest CT 07/10/18 00:00 CONCLUSION: 1. There is no change in right apical lung mass with additional area of spiculated density within lingula and scattered areas of scarring in both lungs. Findings are indeterminate in regards to malignancy could be further characterized with F-18 FDG PET/CT based on clinical grounds. 2. Right adrenal mass not changed nonspecific in regards to metastatic disease could be a large adenoma. Tiny subcentimeter hepatic cysts not significantly changed. Soft Tissue Neck CT 07/10/18 00:00 CONCLUSION: The previously seen gas collection in the anterior portion of the patient's lung with extension into some single space and partially submental space has not changed in size, however has more fluid and induration of subcutaneous fat since the prior study highly suspicious for focal abscess. Discharge Plan Discharge Disposition Patient Disposition: 68 Transfer To Other Facility Discharge Condition Condition: Stable Discharge Order Discharge Orders: Discharge Order (Routine); Ordered 07/10/18 Ordered By: Yonny Coughlin ED Use Only Admit Order (Routine); Ordered 07/06/18 Ordered By: Kayleen Webber Discharge Details Anticipated Discharge Date: 07/10/18 Diagnosis: Failure of outpatient treatment, Cellulitis, Dental infection Physicians Team ED Provider: Kayleen Webber Primary Care Provider: Primary Care Renetta Wellington Attending Provider: Yonny Coughlin Other Providers: Ruel Melton ; Lelo Samson Rxs /Orders / Referrals /Forms Prescriptions: New ampicillin-sulbactam [Unasyn] 15 gram recon soln 3 g IV Q6H 14 Days Qty: 1 RF: 0 Continue metformin 500 mg Tablet 500 mg PO BID RF: 0 pravastatin 40 mg Tablet 40 mg PO DAILY RF: 0 glimepiride 2 mg Tablet 2 mg PO QAM RF: 0 telmisartan 40 mg Tablet 40 mg PO DAILY RF: 0 naproxen 500 mg Tablet 500 mg PO BID RF: 0 tiotropium bromide [Spiriva Respimat] 2.5 mcg/actuation Mist 2 puff INHALATION DAILY RF: 0 Referrals: Primary Care Renetta Wellington [Primary Care Provider] - See Instructions Discharge Interventions Interventions: Discharge Planning - Case Management Last Done: 07/10/18 12:08 Status ED Status: Left Department
[2018-07-10] MEDS: Sod Chloride 0.9% Inj 1,000 ML IV.CONT SCH ×2 (16:44→21:36)
--- NOTE | 2018-07-10 16:59 | P.PNIM ---
Subjective Interval history: Patient denied any fever or chills Patient denies any subjective difficulty with breathing CT reviewed reveals possible abscess formation Discussed with patient in extreme detail that it may be best for him to be transferred if there is any surgical intervention required at this time. Patient and both present at the bedside and completely understood the plan for arrangement of possible transfer. Patient is tolerating IV antibiotics well. Infectious disease notified of possible transfer Physical Exam Vital signs: Vital Signs 07/09/18 20:00 07/10/18 00:00 07/10/18 08:00 Temperature 98 F 98.1 F 98.5 F Pulse Rate 101 H 102 H 98 H Respiratory Rate 20 18 18 Blood Pressure 154/72 H 165/74 H 166/83 H Pulse Oximetry 98 99 99 07/10/18 12:00 Temperature 98.1 F Pulse Rate 96 H Respiratory Rate 20 Blood Pressure 180/87 H Pulse Oximetry 98 Intake & Output 07/09/18 07/10/18 07/10/18 18:59 06:59 18:59 Intake Total 2400 / 2400 1640 / 1640 100 / 100 Balance 2400 / 2400 1640 / 1640 100 / 100 Intake: IV 1200 / 1200 200 / 200 100 / 100 NS Inj 1,000 ML @ 100 mls/hr IV 1000 / 1000 .CONT .Q10H [facility] Rx#:[id number] Unasyn Inj 3 GM In NS Inj 100 200 / 200 200 / 200 100 / 100 ML @ 200 mls/hr IV.SIG Q6H [facility] Rx#:[id number] Oral 1200 / 1200 1440 / 1440 Other: # Voids 5 6 Date of Last Bowel Movement 07/07/18 General: No acute distress HEENT: Firm fluctuant region and submandibular area no pus noted Cardiovascular: S1/S2 Respiratory: Clear to auscultation Gastroneurology: Soft, nontender positive bowel sounds Extremity: No edema Results Labs CBC & Chem 7: 07/10/18 05:13 07/08/18 06:10 Labs: Microbiology 07/06/18 20:55 Blood - Peripheral Aerobic Blood Culture - Preliminary No growth in 4 days 07/06/18 20:55 Blood - Peripheral Anaerobic Blood Culture - Preliminary No growth in 4 days 07/06/18 20:50 Blood - Peripheral Aerobic Blood Culture - Preliminary No growth in 4 days 07/06/18 20:50 Blood - Peripheral Anaerobic Blood Culture - Preliminary No growth in 4 days Imaging Imaging: Impressions Chest CT 07/10/18 00:00 CONCLUSION: 1. There is no change in right apical lung mass with additional area of spiculated density within lingula and scattered areas of scarring in both lungs. Findings are indeterminate in regards to malignancy could be further characterized with F-18 FDG PET/CT based on clinical grounds. 2. Right adrenal mass not changed nonspecific in regards to metastatic disease could be a large adenoma. Tiny subcentimeter hepatic cysts not significantly changed. Soft Tissue Neck CT 07/10/18 00:00 CONCLUSION: The previously seen gas collection in the anterior portion of the patient's lung with extension into some single space and partially submental space has not changed in size, however has more fluid and induration of subcutaneous fat since the prior study highly suspicious for focal abscess. Assessment and Plan Plan Patient is a 68-year-old male with past medical history of hyperlipidemia, hypertension, diabetes mellitus presenting with jaw erythema swelling admitted and found on CAT scan to have significant soft tissue swelling. Infectious disease: Soft tissue infection ENT consulted but recommend [facility] evaluation Blood culture: No growth to date x4 Monitor vancomycin trough Pain control: Naproxen [address] imaging reviewed. No evidence of Abscess formation in the chest - Infectious disease consulted and following -Continue Unasyn Repeat CT imaging of chest with possible fluid collection Will initiate transfer process at this time. Pulmonary: Lung nodule Outpatient follow-up with PET/CT scan. Cardiology: Hyperlipidemia, hypertension Hold losartan 50 mg given acute kidney injury Pravastatin 40 mg p.o. Endocrinology: Diabetes mellitus Insulin correctional scale Hold all oral hypoglycemics Nephrology: Acute kidney injury Encourage p.o. intake Chemistry in the morning code: FC dvt ppx: ambulation dispo: patient is self pay (see case management note for explanation). Transfer process initiated. Progress Note: Quality VTE Deep Vein Thrombosis/Pulmonary Embolism Present on Admission: No
[2018-07-10 17:12] LABS: Anion Gap 6 meq/L (5-15); Blood Urea Nitrogen 11 mg/dL (7-18); Calcium 8.8 mg/dL (8.5-10.1); Carbon Dioxide 25.1 meq/L (21.0-32.0); Chloride 110 meq/L (98-107); Glomerular Filtration Rate Greater Than 89 mL/min (>89); Glucose,Random 133 mg/dL (74-106); Magnesium 1.8 mg/dL (1.5-2.5); Potassium 3.5 meq/L (3.5-5.1); Sodium 141 meq/L (136-145)
[2018-07-11] MEDS: Insulin NovoLOG Aspart Correctional Sugar Inj SQ SCH ×5 (04:15→21:12)
[2018-07-11] MEDS: Sod Chloride 0.9% Inj 1,000 ML IV.CONT SCH ×2 (04:30→15:59)
[2018-07-11] MEDS: Ampicillin/Sulbactam Inj 3 GM in Sodium Chloride 0.9% Inj 100 ML IV.SIG SCH ×4 (05:09→23:03)
[2018-07-11 08:47] LABS: Hematocrit 31.3 % (39.0-51.0); Hemoglobin 10.4 gm/dL (13.0-17.0); Mean Corpuscular HGB Conc 33.4 % (32.0-36.0); Mean Corpuscular Hemoglobin 34.2 pg (27.0-34.0); Mean Corpuscular Volume 102.5 fL (80.0-100.0); Mean Platelet Volume 7.5 fL (7.0-11.0); Platelet Count 554 th/mm3 (150-450); Red Blood Count 3.05 mil/mm3 (4.50-5.90); White Blood Count 9.8 th/mm3 (4.0-11.0)
[2018-07-11] MEDS: Senna/Docusate Sodium 8.6/50 MG Tablet PO SCH ×2 (09:13→21:12)
--- NOTE | 2018-07-11 13:44 | P.PNIM ---
Subjective Interval history: Acute complaints Patient would prefer to stay at this hospital for evaluation and explained to patient that if transfer can go through and a bed is available I would not delay his medical care Patient denies any breathing difficulty Patient denies any shortness of breath Patient denies any odynophagia Patient denies any out dysphagia Patient denies any chest pain Patient denies any complaints at this moment and says that he has not noticed any pus or anything coming out of the small ulcerated area near his jaw line Patient with fluctuating blood pressures at moments. Physical Exam Vital signs: Vital Signs 07/10/18 20:00 07/10/18 23:54 07/11/18 04:00 Temperature 97.1 F L 98.1 F 98.6 F Pulse Rate 109 H 85 84 Respiratory Rate 18 18 18 Blood Pressure 180/87 H 168/88 H 168/88 H Pulse Oximetry 93 L 95 91 L 07/11/18 08:00 07/11/18 12:00 Temperature 97.5 F L 99.0 F Pulse Rate 92 H 91 H Respiratory Rate 18 18 Blood Pressure 162/74 H 176/80 H Pulse Oximetry 94 L 96 Intake & Output 07/10/18 07/11/18 07/11/18 18:59 06:59 18:59 Intake Total 200 / 200 1160 / 1160 100 / 100 Output Total 400 / 400 Balance 200 / 200 760 / 760 100 / 100 Weight 72.2 kg Intake: IV 200 / 200 200 / 200 100 / 100 Unasyn Inj 3 GM In NS Inj 100 200 / 200 200 / 200 100 / 100 ML @ 200 mls/hr IV.SIG Q6H [facility] Rx#:[id number] Oral 960 / 960 Output: Urine 400 / 400 Other: Date of Last Bowel Movement 07/07/18 07/10/18 07/10/18 # Bowel Movements 0 Weight On Admission 72.6 kg General: No acute distress HEENT: Small 0.5 x 0.5 ulcerated area near the jaw. No pus can be pushed out during my examination. Loculated region to the left of the submandibular area of jaw Cardia vascular: S1/S2 Respiratory: There to auscultation Gastroenterology: Soft, nontender, nondistended, no guarding or rebound Extremity: No lower extremity edema Results Labs CBC & Chem 7: 07/11/18 05:55 07/10/18 16:29 Labs: Microbiology 07/06/18 20:55 Blood - Peripheral Aerobic Blood Culture - Final No growth in 5 days 07/06/18 20:55 Blood - Peripheral Anaerobic Blood Culture - Final No growth in 5 days 07/06/18 20:50 Blood - Peripheral Aerobic Blood Culture - Final No growth in 5 days 07/06/18 20:50 Blood - Peripheral Anaerobic Blood Culture - Final No growth in 5 days Assessment and Plan Plan Patient is a 68-year-old male with past medical history of hyperlipidemia, hypertension, diabetes mellitus presenting with jaw erythema swelling admitted and found on CAT scan to have significant soft tissue swelling. Infectious disease: Soft tissue infection ENT consulted but recommend [facility] evaluation Blood culture: No growth to date x5 Monitor vancomycin trough Pain control: Naproxen [address] imaging reviewed. No evidence of Abscess formation in the chest - Infectious disease consulted and following -Continue Unasyn Repeat CT imaging of chest with possible fluid collection reported Transfer initiated and pending. If patient remains at [facility] on Friday will recall oral facial maxillary service to see if new covering physician would be able to evaluate patient at that time. Accepting physician at [facility] is hospitalist group with dr. diggs ([facility]) willing to evaluate on transfer. Pulmonary: Lung nodule Outpatient follow-up with PET/CT scan. Cardiology: Hyperlipidemia, hypertension Hold losartan 50 mg given acute kidney injury - Pravastatin 40 mg p.o. Endocrinology: Diabetes mellitus Insulin correctional scale Hold all oral hypoglycemics Nephrology: Acute kidney injury Encourage p.o. intake Chemistry in the morning -Resolved Code: FC dvt ppx: ambulation dispo: patient is self pay (see case management note for explanation). Transfer process initiated. Progress Note: Quality VTE Deep Vein Thrombosis/Pulmonary Embolism Present on Admission: No
[2018-07-11 14:02] LABS: Anion Gap 7 meq/L (5-15); Blood Urea Nitrogen 10 mg/dL (7-18); Calcium 8.5 mg/dL (8.5-10.1); Carbon Dioxide 24.7 meq/L (21.0-32.0); Chloride 110 meq/L (98-107); Glomerular Filtration Rate Greater Than 89 mL/min (>89); Glucose,Random 132 mg/dL (74-106); Potassium 3.4 meq/L (3.5-5.1); Sodium 142 meq/L (136-145)
[2018-07-12] MEDS: Insulin NovoLOG Aspart Correctional Sugar Inj SQ SCH ×5 (04:16→22:51)
[2018-07-12] MEDS: Ampicillin/Sulbactam Inj 3 GM in Sodium Chloride 0.9% Inj 100 ML IV.SIG SCH ×4 (04:17→22:51)
[2018-07-12] MEDS: Sod Chloride 0.9% Inj 1,000 ML IV.CONT SCH ×3 (04:23→22:51)
[2018-07-12] MEDS: Senna/Docusate Sodium 8.6/50 MG Tablet PO SCH ×2 (09:56→22:52)
[2018-07-12 11:12] LABS: Glomerular Filtration Rate Greater Than 89 mL/min (>89)
--- NOTE | 2018-07-12 12:24 | P.PNIM ---
Subjective Interval history: Patient seen and evaluated this morning at bedside Patient denies subjective fever and chills T-max overnight 99 degrees Overnight patient reports that his jaw "open up" and he noticed drainage which is subsequently stopped Patient would like to remain in hospital. Explained to him that if transfer cannot occur on 07/13 that we would recall oral facial maxillary surgery for them to evaluate inpatient for treatment. Physical Exam Vital signs: Vital Signs 07/11/18 16:00 07/11/18 20:00 07/12/18 00:00 Temperature 98.4 F 97.9 F 99 F Pulse Rate 85 86 85 Respiratory Rate 18 17 16 Blood Pressure 184/99 H 127/82 166/80 H Pulse Oximetry 96 98 94 L 07/12/18 04:00 Temperature 97.4 F L Pulse Rate 83 Respiratory Rate 16 Blood Pressure 158/82 H Pulse Oximetry 94 L Intake & Output 07/11/18 07/12/18 07/12/18 18:59 06:59 18:59 Intake Total 880 / 880 440 / 440 100 / 100 Output Total 1000 / 1000 Balance -120 / -120 440 / 440 100 / 100 Weight 73 kg Intake: IV 200 / 200 200 / 200 100 / 100 Unasyn Inj 3 GM In NS Inj 100 200 / 200 200 / 200 100 / 100 ML @ 200 mls/hr IV.SIG Q6H [facility] Rx#:[id number] Oral 480 / 480 240 / 240 Other 200 / 200 Output: Urine 1000 / 1000 Other: # Voids 2 Date of Last Bowel Movement 07/10/18 07/12/18 general: No acute distress HEENT: Small ulcerated region on the left lower portion of the jaw with small amount of pus able to be expressed. Minimal tenderness Cardiovascular: S1/S2 Raspatory: Clear to auscultation bilaterally Gastrointestinal: Soft, nontender, nondistended Extremity: No lower extremity edema Results Labs CBC & Chem 7: 07/11/18 05:55 07/12/18 08:05 Labs: Microbiology 07/06/18 20:55 Blood - Peripheral Aerobic Blood Culture - Final No growth in 5 days 07/06/18 20:55 Blood - Peripheral Anaerobic Blood Culture - Final No growth in 5 days 07/06/18 20:50 Blood - Peripheral Aerobic Blood Culture - Final No growth in 5 days 07/06/18 20:50 Blood - Peripheral Anaerobic Blood Culture - Final No growth in 5 days Assessment and Plan Plan Patient is a 68-year-old male with past medical history of hyperlipidemia, hypertension, diabetes mellitus presenting with jaw erythema swelling admitted and found on CAT scan to have significant soft tissue swelling. Infectious disease: Soft tissue infection ENT consulted but recommend [facility] evaluation Blood culture: No growth to date x5 Monitor vancomycin trough Pain control: Naproxen [address] imaging reviewed. No evidence of Abscess formation in the chest - Infectious disease consulted and following -Continue Unasyn Repeat CT imaging of chest with possible fluid collection reported Transfer initiated and pending. If patient remains at [facility] on Friday will recall oral facial maxillary service to see if new covering physician would be able to evaluate patient at that time. Accepting physician at [facility] is hospitalist group with dr. diggs ([facility]) willing to evaluate on transfer. Pulmonary: Lung nodule Outpatient follow-up with PET/CT scan. Cardiology: Hyperlipidemia, hypertension losartan 50 mg - Pravastatin 40 mg p.o. Vasotec 2.5 mg IV every 6 hours as needed Endocrinology: Diabetes mellitus Insulin correctional scale Hold all oral hypoglycemics Nephrology: Acute kidney injury Encourage p.o. intake Code: FC dvt ppx: ambulation dispo: patient is self pay (see case management note for explanation). Transfer process initiated. Progress Note: Quality VTE Deep Vein Thrombosis/Pulmonary Embolism Present on Admission: No
[2018-07-13] MEDS: Insulin NovoLOG Aspart Correctional Sugar Inj SQ SCH ×5 (06:00→21:03)
[2018-07-13] MEDS: Ampicillin/Sulbactam Inj 3 GM in Sodium Chloride 0.9% Inj 100 ML IV.SIG SCH ×4 (06:01→22:24)
[2018-07-13] MEDS: Sod Chloride 0.9% Inj 1,000 ML IV.CONT SCH ×2 (06:02→15:19)
[2018-07-13 08:19] LABS: Hematocrit 32.9 % (39.0-51.0); Hemoglobin 11.3 gm/dL (13.0-17.0); Mean Corpuscular HGB Conc 34.3 % (32.0-36.0); Mean Corpuscular Hemoglobin 34.5 pg (27.0-34.0); Mean Corpuscular Volume 100.4 fL (80.0-100.0); Mean Platelet Volume 7.6 fL (7.0-11.0); Platelet Count 660 th/mm3 (150-450); Red Blood Count 3.28 mil/mm3 (4.50-5.90); Red Cell Distribution Width 14.2 % (11.6-17.2); White Blood Count 10.5 th/mm3 (4.0-11.0)
[2018-07-13 08:45] LABS: Anion Gap 6 meq/L (5-15); Blood Urea Nitrogen 9 mg/dL (7-18); Calcium 8.4 mg/dL (8.5-10.1); Carbon Dioxide 29.6 meq/L (21.0-32.0); Chloride 107 meq/L (98-107); Glomerular Filtration Rate Greater Than 89 mL/min (>89); Glucose,Random 100 mg/dL (74-106); Magnesium 1.8 mg/dL (1.5-2.5); Potassium 3.4 meq/L (3.5-5.1); Sodium 143 meq/L (136-145)
[2018-07-13] MEDS: Senna/Docusate Sodium 8.6/50 MG Tablet PO SCH ×2 (09:23→21:03)
--- NOTE | 2018-07-13 10:29 | P.PNIM ---
Subjective Interval history: Patient seen and evaluated this morning on morning rounds as follow-up for abscess and fluid collection. Patient denies subjective fever and chills Case briefly discussed with oral facial maxillary team this morning and they will try to evaluate during the daytime if possible Patient reports overnight that he did notice some drainage from the area. Wound culture ordered to be sent off Will discuss with infectious disease at this time regarding any additional recommendations. No other complaints of difficulty breathing, shortness of breath, dysphagia, odynophagia, or hearing or vision changes. Patient continues to be afebrile last 24 hours with a T-max of 99 at 12 at 12 PM Physical Exam Vital signs: Vital Signs 07/12/18 12:00 07/12/18 16:00 07/12/18 20:00 Temperature 97.9 F 97.5 F L 98.1 F Pulse Rate 86 86 88 Respiratory Rate 18 18 17 Blood Pressure 169/99 H 177/97 H 162/84 H Pulse Oximetry 98 98 94 L 07/13/18 00:00 07/13/18 04:00 07/13/18 08:00 Temperature 98.6 F 97.9 F 98.0 F Pulse Rate 82 81 86 Respiratory Rate 15 14 18 Blood Pressure 166/82 H 160/90 H 158/76 H Pulse Oximetry 98 98 96 Intake & Output 07/12/18 07/13/18 07/13/18 18:59 06:59 18:59 Intake Total 1120 / 1120 440 / 440 Output Total 1000 / 1000 1500 / 1500 Balance 120 / 120 -1060 / -1060 Weight 72.5 kg Intake: IV 200 / 200 200 / 200 Unasyn Inj 3 GM In NS Inj 100 200 / 200 200 / 200 ML @ 200 mls/hr IV.SIG Q6H [facility] Rx#:[id number] Oral 720 / 720 240 / 240 Other 200 / 200 Output: Urine 1000 / 1000 1500 / 1500 Other: Date of Last Bowel Movement 07/12/18 General: No acute distress, conversational HEENT: Submandibular region fluctuant collection under jaw with visible purulence. No oral erythema. Poor dentition Cardiovascular: S1/S2. No tachycardia Respiratory: Clear to auscultation anteriorly posteriorly. No wheezing, rales, or rhonchi Gastroenterology: Soft, nontender, nondistended, no guarding or rebound appreciated. Extremity: 2+ bounding right upper extremity radial pulse. Results Labs CBC & Chem 7: 07/13/18 06:33 07/13/18 06:33 Assessment and Plan Plan Patient is a 68-year-old male with past medical history of hyperlipidemia, hypertension, diabetes mellitus presenting with jaw erythema swelling admitted and found on CAT scan to have significant soft tissue swelling. Patient with repeat CT imaging after a small ulceration noted on the base of the submandibular gland. Reading concerning for development of fluid collection with abscess. Oral facial maxillary service and infectious disease consulted. Patient currently on IV Unasyn antibiotic with improvement in white blood cell count. Patient remains afebrile on this regimen. Infectious disease: Soft tissue infection ENT consulted but recommend [facility] evaluation Blood culture: No growth to date x5 Monitor vancomycin trough Pain control: Naproxen [address] imaging reviewed. No evidence of Abscess formation in the chest - Infectious disease consulted and recommendations have been appreciated previously. She - Continue Unasyn Repeat CT imaging of chest with possible fluid collection reported Transfer initiated and pending. If patient remains at [facility] on Friday will recall oral facial maxillary service to see if new covering physician would be able to evaluate patient at that time. Accepting physician at [facility] is hospitalist group with dr. diggs ([facility]) willing to evaluate on transfer. No bed has been assigned to patient as of yet on 07/13. Case briefly discussed with oral facial maxillary service and their follow-up is greatly greatly appreciated. Continue n.p.o. status for patient. Patient reports that he did not have any food overnight and only used water to wash on his mouth when it became dry. Wound culture with Gram stain ordered White count has continued to resolve currently 10.5 and has been normal for 48 hours Pulmonary: Lung nodule Outpatient follow-up with PET/CT scan. This was communicated to the patient who reports that at this moment he would not like to do any further intervention related to the lung finding until after his infection is cleared up. Explained to patient that he will need to follow-up with a physician once discharged and stabilized. Patient verbalized understanding Cardiology: Hyperlipidemia, hypertension losartan 50 mg --> will need to increase dose to 75 mg daily once allowed to have oral intake again - Pravastatin 40 mg p.o. Vasotec 2.5 mg IV every 6 hours as needed Endocrinology: Diabetes mellitus Insulin correctional scale Hold all oral hypoglycemics Nephrology: Acute kidney injury Encourage p.o. intake Currently resolved Code: FC dvt ppx: ambulation dispo: patient is self pay (see case management note for explanation). Transfer process initiated but requesting oral facial maxillary service to evaluate patient while at [place] as patient has not been able to get a bed for transfer yet. Progress Note: Quality VTE Deep Vein Thrombosis/Pulmonary Embolism Present on Admission: No
--- NOTE | 2018-07-13 12:32 | P.PNID ---
Subjective Remarks: Patient is a 68-year-old male, presented to the hospital for further evaluation of and swelling in his neck and jaw. Patient on June 30, noted that he fractured the bottom left molar. Several hours after that he started having pain, and took some medication, and he was putting cold water which would relieve the pain for about 20 minutes. The pain went away, and around June for the pain came back so he decided to go to the urgent care center. There is also some swelling that developed on his left jaw, and patient was given a prescription for amoxicillin which reportedly he was taking twice a day. He was compliant with his medication, however he started noticing increasing pain, and noted that the swelling was getting worse. He went to the same urgent care center and from there he was told to go to the hospital for further evaluation and treatment. Patient denies any fever chills or sweats. He denies any shortness of breath as a result of the swelling, or any difficulty swallowing or drooling. Evaluation in the emergency room showed a white count of 21,000. CT of the neck is showing evidence of air and induration in the floor of the mouth and the left side of the neck. Patient was started on broad-spectrum antibiotics, and he has noted some mild improvement. Maxillofacial surgery is currently pending. Infectious disease consultation has been requested to assist with antibiotic management. Notes reviewed D/W Dr Cara Coughlin Developed an area of drainage in submandibular L, but stopped No fever Not SOB Swallowing well Antibiotics: Unasyn Lines: PIV Past Medical History: COPD (chronic obstructive pulmonary disease) Diabetes mellitus Diabetic neuropathy Hyperlipidemia Hypertension Tonsillectomy Allergies/Adverse Reactions: Allergies No Known Allergies Allergy (Verified 07/06/18 20:45) Objective Vital Signs 07/12/18 16:00 07/12/18 20:00 07/13/18 00:00 Temperature 97.5 F L 98.1 F 98.6 F Pulse Rate 86 88 82 Respiratory Rate 18 17 15 Blood Pressure 177/97 H 162/84 H 166/82 H Pulse Oximetry 98 94 L 98 07/13/18 04:00 07/13/18 08:00 Temperature 97.9 F 98.0 F Pulse Rate 81 86 Respiratory Rate 14 18 Blood Pressure 160/90 H 158/76 H Pulse Oximetry 98 96 Intake & Output 07/12/18 07/13/18 07/13/18 18:59 06:59 18:59 Intake Total 1120 / 1120 440 / 440 Output Total 1000 / 1000 1500 / 1500 Balance 120 / 120 -1060 / -1060 Weight 72.5 kg Intake: IV 200 / 200 200 / 200 Unasyn Inj 3 GM In NS Inj 100 200 / 200 200 / 200 ML @ 200 mls/hr IV.SIG Q6H [facility] Rx#:[id number] Oral 720 / 720 240 / 240 Other 200 / 200 Output: Urine 1000 / 1000 1500 / 1500 Other: Date of Last Bowel Movement 07/12/18 07/13/18 11:34 Abscess - Face Gram Stain - Pending 07/13/18 11:34 Abscess - Face Wound Culture - Pending 07/06/18 20:55 Blood - Peripheral Aerobic Blood Culture - Final No growth in 5 days 07/06/18 20:55 Blood - Peripheral Anaerobic Blood Culture - Final No growth in 5 days 07/06/18 20:50 Blood - Peripheral Aerobic Blood Culture - Final No growth in 5 days 07/06/18 20:50 Blood - Peripheral Anaerobic Blood Culture - Final No growth in 5 days Lab - Hematology Results 07/13/18 06:33 WBC 10.5 RBC 3.28 L Hgb 11.3 L Hct 32.9 L MCV 100.4 H MCH 34.5 H MCHC 34.3 RDW 14.2 Plt Count 660 H MPV 7.6 Lab - Chemistry Results 07/11/18 07/11/18 07/11/18 13:12 16:45 20:29 Sodium 142 Potassium 3.4 L Chloride 110 H Carbon Dioxide 24.7 Anion Gap 7 BUN 10 Creatinine 0.72 Estimated GFR Greater than 89 POC Glucose 119 H 190 H Random Glucose 132 H Calcium 8.5 Magnesium 07/12/18 07/12/18 07/12/18 03:14 07:43 08:05 Sodium Potassium Chloride Carbon Dioxide Anion Gap BUN Creatinine 0.61 Estimated GFR Greater than 89 POC Glucose 111 H 118 H Random Glucose Calcium Magnesium 07/12/18 07/12/18 07/12/18 12:01 17:14 20:11 Sodium Potassium Chloride Carbon Dioxide Anion Gap BUN Creatinine Estimated GFR POC Glucose 144 H 108 158 H Random Glucose Calcium Magnesium 07/13/18 07/13/18 07/13/18 03:17 06:33 07:39 Sodium 143 Potassium 3.4 L Chloride 107 Carbon Dioxide 29.6 Anion Gap 6 BUN 9 Creatinine 0.74 Estimated GFR Greater than 89 POC Glucose 121 H 113 H Random Glucose 100 Calcium 8.4 L Magnesium 1.8 07/13/18 11:57 Sodium Potassium Chloride Carbon Dioxide Anion Gap BUN Creatinine Estimated GFR POC Glucose 113 H Random Glucose Calcium Magnesium Imaging: ITS Impressions Chest X-Ray 07/06/18 20:46 CONCLUSION: Abnormal chest. Recommend including CT chest with the patient's planned additional imaging workup Chest CT 07/10/18 00:00 CONCLUSION: 1. There is no change in right apical lung mass with additional area of spiculated density within lingula and scattered areas of scarring in both lungs. Findings are indeterminate in regards to malignancy could be further characterized with F-18 FDG PET/CT based on clinical grounds. 2. Right adrenal mass not changed nonspecific in regards to metastatic disease could be a large adenoma. Tiny subcentimeter hepatic cysts not significantly changed. Soft Tissue Neck CT 07/10/18 00:00 CONCLUSION: The previously seen gas collection in the anterior portion of the patient's lung with extension into some single space and partially submental space has not changed in size, however has more fluid and induration of subcutaneous fat since the prior study highly suspicious for focal abscess. Physical Exam: GENERAL: awake and alert, not in respiratory distress. SKIN: Cool and dry. No generalized rash EYES: [place] conjunctiva. No petechia or hemorrhage. No scleral icterus. No injection or drainage. EARS, NOSE AND THROAT: Mucous membranes pink and moist. Has poor dentition, and fractured tooth L lower molar. No oral thrush. NECK: Swelling and induration in L submental/submandibular area, with smaller area of induration, and has an area with slough which is most likely where it drained and has sealed off. Supple, no meningeal signs CARDIOVASCULAR: Regular rate and rhythm. No murmurs, rubs or gallops heard RESPIRATORY: Clear to auscultation. Breath sounds equal bilaterally. No rales , wheezing or rhonchi ABDOMEN: Soft, non-tender, nondistended. Bowel sounds present and normoactive. No guarding. No rebound. No organomegaly. EXTREMITIES: No clubbing, cyanosis, or edema. No calf tenderness. NEUROLOGICAL: Grossly non-focal PSYCHIATRIC: Normal affect, calm and cooperative. LINE: No evidence of infection Assessment and Plan - Plan Impression Infection in neck, from dental source, abscess Possible sepsis due to dental infection Known COPD Leukocytosis Recommendation Contniue IV Unasyn Monitor progress OMFS to evaluate Explained plan to patient D/W Dr Cara Coughlin
--- NOTE | 2018-07-13 17:20 | MB ---
cc: Albino Davies DMD Albino Davies DMD DATE: 07/13/2018 REASON FOR CONSULTATION: Decayed tooth plus dental abscess. HISTORY OF PRESENT ILLNESS: This is a pleasant 68-year-old male I have seen and examined this evening. His is at bedside. He is alert, awake and oriented x 3, in no acute distress. The patient has had a tooth on the left side, he reports since 06/28/2018. Since they recently moved in from [place], [place], they do not have a dentist. He went to several urgent care centers and then began to have the swelling worse and worse and he was not amenable to antibiotics. Finally, he came into the hospital last 07/06/2018, with swelling there, unable to be treated by ENT or Plastics. I spoke to Dr. Coughlin last Friday, who called me on any input, even though we were not pest control service sales agent. I did advise Dr. Coughlin that the patient can be given IV antibiotics, steroids and can be discharged the following day to my office as an outpatient and we would take the tooth out, but if it is getting worse and worse and he needs immediate surgical intervention, then advised the patient to be transferred to a facility with oral maxillofacial surgeon. The patient apparently was accepted for transfer last Friday, but due to bed placement, the patient did spend the weekend here. Dr. Coughlin called me this morning again for input on how to proceed. I indicated I will come by and see this patient. The patient denies any fever, chills, nausea, vomiting, any shortness of breath, any difficulty speaking or breathing. He reports he is much better than what he was last week. PAST MEDICAL HISTORY: 1. COPD. 2. Diabetes mellitus, well controlled. 3. Hypertension. 4. Hyperlipidemia. 5. Neuropathy. PAST SURGICAL HISTORY: Reports tonsillectomy. ALLERGIES: DENIED. SOCIAL HISTORY: He smoked, and he quit about 10 years ago. Drinks several alcoholic drinks a week. Denies any illicit drug use. MEDICATIONS: 1. Amoxicillin. 2. Metformin, for diabetes. 3. Pravastatin. 4. Naprosyn. 5. Spiriva. PHYSICAL EXAMINATION: VITAL SIGNS: Temperature 97.9, pulse is 85, respirations 18, blood pressure is 154/69 with an oxygen saturation of 98% on room air. ORAL EXAM: No gross facial swelling that is noted. Left anterior mandible, there is a raised area that is firm with a history of discharge coming out at that site. It is well circumscribed. Trachea is midline. No other gross neck edema, but this area is right at the inferior border of the mandible anterior part of the mandible left of the midline. It has been draining throughout the day as per the patient. Intraorally, there is no trismus noted. Tissue is pink and well perfused. No clinical signs of any pus drainage or any elevation of the floor of the mouth or the tongue. There is no deviation of the uvula. He has a left posterior molar, appears to be tooth #18, that could be decayed and with some crown. CT scans, soft tissue shows some area of gas noted in the sublingual submental region. More fluid collection is also noted, from the previous exam on the . There looks like radiolucency around tooth #18. LABORATORY DATA: White count is 10.5. Previously it has been as high as 22.3. H and H of 11.2 and 32.9, with a platelet count of 660. PT/INR is 1.0. PT is 34.4. ASSESSMENT AND PLAN: This is a 68-year-old male with left molar mandibular that had been broken and now at this point keeps having swelling, which progressively got worse, not amenable to an outpatient antibiotic treatment, not seeing a dentist. The plan is to discharge the patient tomorrow morning to my office. I will extract the offending source of the tooth, incision and drainage left mandible submandibular region, extending to the submental region. I discussed this with the patient, his and Dr. Coughlin. The patient will be started on some oral antibiotics and pain medication. All questions and concerns were addressed. The patient has been advised to follow up with dentist. ABDULLAHI Guo/dorothy , 04:40 PM , 04:52 PM
[2018-07-14] MEDS: Sod Chloride 0.9% Inj 1,000 ML IV.CONT SCH (01:03)
[2018-07-14] MEDS: Insulin NovoLOG Aspart Correctional Sugar Inj SQ SCH ×2 (03:28→09:00)
[2018-07-14] MEDS: Ampicillin/Sulbactam Inj 3 GM in Sodium Chloride 0.9% Inj 100 ML IV.SIG SCH (05:40)
[2018-07-14 05:46] LABS: Hematocrit 31.7 % (39.0-51.0); Hemoglobin 10.9 gm/dL (13.0-17.0); Mean Corpuscular HGB Conc 34.2 % (32.0-36.0); Mean Corpuscular Hemoglobin 34.7 pg (27.0-34.0); Mean Corpuscular Volume 101.3 fL (80.0-100.0); Mean Platelet Volume 7.6 fL (7.0-11.0); Platelet Count 611 th/mm3 (150-450); Red Blood Count 3.13 mil/mm3 (4.50-5.90); White Blood Count 10.9 th/mm3 (4.0-11.0)
--- NOTE | 2018-07-14 08:24 | P.DS ---
DS: Providers Date of admission: 07/06/18 22:56 Primary care physician: No Primary Care Physician Consults: 07/06/18 23:27 Consult to ENT Routine Consulting Provider: Ruel Melton Reason for Consultation: Air and mild indurative change in the left floor of mouth and submandibular region. Notified:: Service Spoke with:: che Date Notified:: 07/07/18 Time Notified:: 02:04 Ordering Provider: ADIRANA 07/07/18 16:02 Consult to Oromaxillofacial Surgery Routine Consulting Provider: Call Back Reason for Consultation: consult to oral surgery for odontogenic neck infection Notified:: Office Spoke with:: Carmelina Date Notified:: 07/07/18 Time Notified:: 16:08 Comments:: Dr. Riddle declined consult (dental problem, not oralmaxillofacial), called to pt's nurse to let them know to have Dr. Melton cancel the consult. DK 07/07/18 1628 Ordering Provider: JULIO CÉSAR 07/08/18 07:30 Consult to Infectious Diseases Routine Consulting Provider: Lelo Samson Reason for Consultation: abx recommendation and duration. no dental available for a consult. [phone] hospitalist cell. Notified:: Service Spoke with:: romina Date Notified:: 07/08/18 Time Notified:: 07:39 Ordering Provider: RADHA Brief History from admission: 68-year-old male with a past medical history significant for diabetes mellitus, hypertension, hyperlipidemia and COPD presents to the emergency department for the evaluation of pain and swelling in his left jaw and left neck. The patient reports that on 06/28 he cracked his bottom left molar. He did not seek treatment as the broken tooth was not bothering him at that time. He reports that by 06/30 his tooth had started hurting. He then noticed left-sided jaw swelling with accompanying pain. One week ago, the patient went to urgent care and was prescribed amoxicillin and naproxen. He took his medications as prescribed however his symptoms continued to worsen. He returned to urgent care today who sent him to the [facility] for further evaluation of failed outpatient therapy. The patient denies any fever/chills. He denies any chest pain or shortness of breath. No abdominal pain. No nausea/vomiting/diarrhea. No focal neurologic deficits. DS: Summary Patient is a 68-year-old male with past medical history of hyperlipidemia, hypertension, diabetes mellitus presenting with jaw erythema swelling admitted and found on CAT scan to have significant soft tissue swelling. Patient with repeat CT imaging after a small ulceration noted on the base of the submandibular gland. Reading concerning for development of fluid collection with abscess. Oral facial maxillary service and infectious disease consulted. Left mandibular abscess dental infection Blood culture: No growth to date x5 Pain control: Naproxen 250 mg every 12 -Infectious disease consulted and patient received Unasyn. -patient was evaluated by Oral surgeon Dr. Davies who recommended evaluation and treatments at his office on 07/14/2018. Pulmonary: Lung nodule Outpatient follow-up with PET/CT scan. This was communicated to the patient who reports that at this moment he would not like to do any further intervention related to the lung finding until after his infection is cleared up. Explained to patient that he will need to follow-up with a physician once discharged and stabilized. Patient verbalized understanding Cardiology: Hyperlipidemia, hypertension losartan 50 mg. Will add low dose Amlodipine upon discharge. -Pravastatin 40 mg p.o. Vasotec 2.5 mg IV every 6 hours as needed Endocrinology: Diabetes mellitus Insulin correctional scale Nephrology: Acute kidney injury Encourage p.o. intake Currently resolved Full code. Time Spent with Patient Total time spent providing and/or coordinating discharge services: Less than 30 minutes Quality: VTE Deep Vein Thrombosis/Pulmonary Embolism Present on Admission: No Exam Narrative Exam Narrative: GENERAL: Alert, Oriented x 3, NAD. SKIN: Warm and dry. HEAD: Normocephalic. Left mandibular abscess with some drainage noted. EYES: No scleral icterus. No injection or drainage. NECK: Supple, trachea midline. No JVD or lymphadenopathy. CARDIOVASCULAR: Regular rate and rhythm without murmurs, gallops, or rubs. RESPIRATORY: Breath sounds equal bilaterally. No accessory muscle use. GASTROINTESTINAL: Abdomen soft, non-tender, nondistended. MUSCULOSKELETAL: No cyanosis, or edema. BACK: Nontender without obvious deformity. No CVA tenderness. Results Labs on day of discharge: Labs from last 24 hours 07/14/18 07/14/18 07/14/18 08:05 03:36 03:14 WBC 10.9 RBC 3.13 L Hgb 10.9 L Hct 31.7 L MCV 101.3 H MCH 34.7 H MCHC 34.2 RDW 14.0 Plt Count 611 H MPV 7.6 Sodium Potassium Chloride Carbon Dioxide Anion Gap BUN Creatinine Estimated GFR POC Glucose 146 H 108 Random Glucose Calcium Magnesium 07/13/18 07/13/18 07/13/18 20:03 16:34 11:57 WBC RBC Hgb Hct MCV MCH MCHC RDW Plt Count MPV Sodium Potassium Chloride Carbon Dioxide Anion Gap BUN Creatinine Estimated GFR POC Glucose 181 H 103 113 H Random Glucose Calcium Magnesium 07/13/18 06:33 WBC RBC Hgb Hct MCV MCH MCHC RDW Plt Count MPV Sodium 143 Potassium 3.4 L Chloride 107 Carbon Dioxide 29.6 Anion Gap 6 BUN 9 Creatinine 0.74 Estimated GFR Greater than 89 POC Glucose Random Glucose 100 Calcium 8.4 L Magnesium 1.8 Impressions ITS Impressions Chest X-Ray 07/06/18 20:46 CONCLUSION: Abnormal chest. Recommend including CT chest with the patient's planned additional imaging workup Chest CT 07/10/18 00:00 CONCLUSION: 1. There is no change in right apical lung mass with additional area of spiculated density within lingula and scattered areas of scarring in both lungs. Findings are indeterminate in regards to malignancy could be further characterized with F-18 FDG PET/CT based on clinical grounds. 2. Right adrenal mass not changed nonspecific in regards to metastatic disease could be a large adenoma. Tiny subcentimeter hepatic cysts not significantly changed. Soft Tissue Neck CT 07/10/18 00:00 CONCLUSION: The previously seen gas collection in the anterior portion of the patient's lung with extension into some single space and partially submental space has not changed in size, however has more fluid and induration of subcutaneous fat since the prior study highly suspicious for focal abscess. Discharge Plan Discharge Disposition Patient Disposition: Discharge Home Discharge Condition Condition: Stable Discharge Order Discharge Orders: Discharge Order (Routine); Ordered 07/14/18 Ordered By: Yonny Coughlin Discharge Details Anticipated Discharge Date: 07/14/18 Physicians Team ED Provider: Kayleen Webber Primary Care Provider: Primary Care Eliz,Renetta Attending Provider: Rena Cobos Other Providers: Ruel Melton ; Lelo Samson Rxs /Orders / Referrals /Forms Prescriptions: New amoxicillin-pot clavulanate [Augmentin] 875-125 mg tablet 1 tab PO Q12H 5 Days Qty: 28 RF: 0 amlodipine 5 mg tablet 5 mg PO DAILY Qty: 30 RF: 5 Continue metformin 500 mg Tablet 500 mg PO BID RF: 0 pravastatin 40 mg Tablet 40 mg PO DAILY RF: 0 glimepiride 2 mg Tablet 2 mg PO QAM RF: 0 naproxen 500 mg Tablet 500 mg PO BID RF: 0 tiotropium bromide [Spiriva Respimat] 2.5 mcg/actuation Mist 2 puff INHALATION DAILY RF: 0 telmisartan 40 mg Tablet 40 mg PO DAILY Qty: 30 RF: 5 Referrals: Primary Care Renetta Wellington [Primary Care Provider] - See Instructions Albino Davies DMD [Physician] - See Instructions (follow up on discharge in office) Discharge Instructions Patient Printed Instructions: Amoxicillin/Clavulanate Potassium (By mouth), Amlodipine (By mouth), Cellulitis (DC) Additional Instructions: f/up dr Davies [facility] tomorrow am call [phone] ok to discharge from oms standpoint tomorrow am to our office ok to resume diet Post Discharge Care Plan Care Plan Goals: Your Health Problems: Goals to Promote Your Health: * To prevent worsening of your condition * To maintain your health at the optimal level Directions to Meet Your Goals: * Take your medications as prescribed * Follow your dietary instruction * Follow activity as directed * Keep your appointments as scheduled * Take your immunizations and boosters as scheduled * If your symptoms worsen call your PCP * If no PCP go to Urgent Care or Emergency Room Smoking is dangerous to your health. Avoid second hand smoke. You may reach the 24-hour crisis hotline for domestic abuse at . Status ED Status: Left Department Discharge Information Discharge Date/Time: 07/14/18 09:16
[2018-07-14] MEDS: Senna/Docusate Sodium 8.6/50 MG Tablet PO SCH (08:51)
== END 2018-07-14 09:16 | disposition home or self-care (01) | DRG 158 ==
LOC: NEPC 15:41 → NEDA 22:56 → N03 07-07 01:24 → N04 07-10 18:45
PROVIDERS: ADMIT Hospitalist; ATTEND Hospitalist
CPT/HCPCS: 70491; 71010; 71045; 71260; 80048; 80053; 82550; 82552; 82565; 82948; 82962; 83605; 83690; 83735; 84484; 85025; 85027; 85610; 85651; 85652; 85730; 86140; 87040; 87070; 87205; 90765; 90767; 90775; 96365; 96367; 96375; 99285; J0295; J1815; J1885; J2270; J2543; J3370; J7030; J7040; J7050; Q9967